=== PATIENT | female | born 1940 | race Caucasian/White ===

== ENCOUNTER → 2017-03-26 | Outpatient (CLI) | payer MEDICARE, OTHER ==
[~2017-03-26] MED LIST: ALPR0.2550 PO; ASPI-84 PO; ATEN-155 PO; ATOR80TA2 PO; ATR20T PO; CALC1CAP8 PO; CPR500T PO; FENO145T2 PO; FURO40TA4 PO; ISM60TCR PO; ISOS30TA3 PO; KCL20TCR PO; LOPE1LIQ PO; METO5TAB2 PO; MTF500T PO; MV-M1TAB20 PO; NF-ESOM40C PO; NITR12SP5 TL; PNT40TEC PO; POLY17PO23 PO; TRAM50TA2 PO; VERA120C2 PO; [UNRECOGNIZED DRUG - OTHER]
--- NOTE | 2017-03-27 19:59 | Diagnostic Imaging Report ---
Bilateral screening mammogram The current study was also evaluated with a Computer Aided Detection (CAD) system. Indication: Screening. No current complaints stated on the questionnaire. COMPARISON: 02/22/15 FINDINGS: The breasts are composed of scattered fibroglandular densities. There are scattered benign-appearing calcifications. Allowing for technique and positional differences, no suspicious change is seen. IMPRESSION: No significant change. ACR BI-RADS Category 2: Benign findings. Result letter will be mailed to the patient. Note: At least 10% of breast cancer is not imaged by mammography. Dictated by: Dictated on workstation # [id number]
== END ==
LOC: RAD 10:35
PROVIDERS: ATTEND Nurse Practitioner Family
DX: Z12.31 Encounter for screening mammogram for malignant neoplasm of breast (principal)
CPT/HCPCS: 77067

== ENCOUNTER → 2017-07-23 | Emergency (ER) | payer MEDICARE, OTHER ==
[~2017-07-23] VITALS: Ht 162.6 cm; Wt 77.1 kg
[~2017-07-23] MED LIST changes: +FLUORESCEIN (FLUOR-I-STRIPS) 1 MG STRP ONE; +FLUORESCEIN (FLUOR-I-STRIPS) 1 MG STRP OU ONE; +RX-TOBRA/DEXAMETH (TOBRADEX) OP. SUSP 2.5 ML BTL ONE; +TETRACAINE 0.5% OPHTH SOLN 4 ML BTL (SINGLE DOSE ONLY) ONE; +TETRACAINE 0.5% OPHTH SOLN 4 ML BTL (SINGLE DOSE ONLY) OU ONE; +TOBRA/DEXAMETH (TOBRADEX) OPHTH SUSP 2.5 ML BTL OU SCH; +cloNIDine 0.1 MG (CATAPRES) TAB PO ONE
--- OUTSIDE RECORDS SUMMARY | 2017-07-23 20:06 | XMS REPORT | Clinical Summary ---
Author Author [facility] Organization [facility] Address Unknown Phone Unavailable Care Team Providers Care Disaster Recovery Consultant Name Role Phone PCP Unavailable Source Comments Some departments are not documenting in the electronic medical record. If you do not see the information that you expected, contact Release of Information in the Health Information Management department at [phone] for further assistance in locating additional records.[facility] Allergies Active Allergy Reactions Severity Noted Date Comments Sulfa (Sulfonamide RASH 01/10/2012 Antibiotics) Current Medications Prescription Sig. Disp. Refills Start End Date Status Date atorvastatin (LIPITOR) 20 Take 20 mg by mouth Active mg tablet daily. fenofibrate micronized Take 134 mg by mouth Active (LOFIBRA) 134 mg capsule daily. atenolol (TENORMIN) 25 mg Take 25 mg by mouth Active tablet daily. esomeprazole DR(+) Take 40 mg by mouth Active (NEXIUM) 40 mg capsule daily. isosorbide mononitrate SR Take 60 mg by mouth every Active (IMDUR) 60 mg tablet morning. aspirin EC 81 mg tablet Take 81 mg by mouth Active daily. ALPRAZolam (XANAX) 0.25 Take 0.25 mg by mouth Active mg tablet every 6 hours as needed. nitroglycerin Take 1 [place] by mouth Active (NITROLINGUAL) 0.4 every 5 minutes as mg/dose translingual needed. spray furosemide (LASIX) 40 mg Take 40 mg by mouth as Active tablet Needed. potassium chloride SR Take 20 mEq by mouth as Active (K-DUR) 20 mEq tablet Needed. diphenoxylate/atropine Take 1 Tab by mouth four Active (LOMOTIL) 2.5/0.025 mg times daily as needed. tablet budesonide (ENTOCORT EC) 3 po q day 168 Cap 0 02/26/20 Active 3 mg capsule 12 Mesalamine (ASACOL HD) Take 3 Tabs by mouth 180 Tab 3 04/16/20 Active 800 mg TbEC twice daily. 12 Active Problems Problem Noted Date Microscopic colitis 02/20/2012 Overview: Diagnosed 01/05 Intestinal bacterial overgrowth, small bowel 02/20/2012 Overview: Diagnosed 01/05; treated with metronidazole x 2 weeks Social History Tobacco Use Types Packs/Day Years Used Date Former Smoker Quit: 02/19/2006 Alcohol Use Drinks/Week oz/Week Comments Yes occasional Sex Assigned at Date Recorded Not on file Last Filed Vital Signs Vital Sign Reading Time Taken Blood Pressure 128/58 02/20/2012 2:37 PM CDT Pulse 63 02/20/2012 2:37 PM CDT Temperature 36.6 C (97.9 F) 02/20/2012 2:37 PM CDT Respiratory Rate 20 02/20/2012 2:37 PM CDT Oxygen Saturation - - Inhaled Oxygen - - Concentration Weight 71.3 kg (157 lb 3.2 oz) 02/20/2012 2:37 PM CDT Height 162.6 cm (5' 4") 02/20/2012 2:37 PM CDT Body Mass Index 26.98 02/20/2012 2:37 PM CDT Plan of Treatment Health Maintenance Due Date Last Done Comments PHYSICAL (COMPREHENSIVE) 1947 EXAM PERTUSSIS VACCINE 1950 TETANUS VACCINE 1956 SHINGLES VACCINE 1999 OSTEOPOROSIS SCREENING 2004 PREVNAR/PNEUMOVAX (#1) 2004 INFLUENZA VACCINE 07/27/2017 Results Not on filefrom Last 3 Months
--- OUTSIDE RECORDS SUMMARY | 2017-07-23 20:06 | XMS REPORT | Continuity of Care Document ---
Author Author [facility] Organization [facility] Address Unknown Phone Unavailable Allergies Active Description Code Type Severity Reaction Onset Reported/Identified Relationship to Patient Clinical Status Yes SULFA SULFA Severe N/A 04/12/2010 Medications 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 02/05/2012 Ot V57.89 REHABILITATION PROC NEC 03/31/2012 Ot 536.8 STOMACH FUNCTION DIS NEC 03/31/2012 Ot 787.3 FLATUL/ERUCTAT/GAS PAIN 03/31/2012 Ot 787.91 DIARRHEA 04/12/2012 Ot 250.00 DIAB [place] WO COMPL, TYPE II OR UNSPEC TY 04/12/2012 Ot 789.09 ABDOMINAL PAIN, OTHER SPECIFIED SITE 04/12/2012 Ot 791.9 ABN URINE FINDINGS NEC 04/12/2012 Ot V58.69 OTH MED,LT,CURRENT USE 09/08/2014 SANJAY BARAJAS DO Ot 401.9 HYPERTENSION NOS 09/08/2014 SANJAY BARAJAS DO Ot 414.01 CORONARY ATHEROSCLEROSIS OF [place] CORON 09/08/2014 SANJAY BARAJAS DO Ot 706.2 SEBACEOUS CYST 09/09/2014 SANJAY BARAJAS DO Ot 706.2 09/09/2014 SANJAY BARAJAS DO Ot V72.83 09/09/2014 SANJAY BARAJAS DO Ot V74.8 03/25/2015 NEIL SILVERMAN DO Ot V76.12 03/26/2017 MIGUEL ALLRED Ot Z12.31 ENCNTR SCREEN MAMMOGRAM FOR MALIGNANT NE 03/26/2017 Ot V76.12 OTH SCREEN MAMMO-MALIGN NEOPLASM OF [place] 03/26/2017 Ot 536.8 STOMACH FUNCTION DIS NEC 03/26/2017 Ot 787.3 FLATUL/ERUCTAT/GAS PAIN 03/26/2017 Ot 787.91 DIARRHEA 03/26/2017 Ot V76.12 OTH SCREEN MAMMO-MALIGN NEOPLASM OF [place] 03/26/2017 NEIL SILVERMAN DO Ot V76.12 OTH SCREEN MAMMO-MALIGN NEOPLASM OF [place] 03/26/2017 SANJAY BARAJAS DO [place] Ot 706.2 SEBACEOUS CYST 03/26/2017 SANJAY BARAJAS DO Ot V72.83 EXAM PRE-OPERATIVE NEC 03/26/2017 BARAJAS SANJAY RADER [place] Ot V74.8 SCREEN-BACTERIAL DIS NEC 03/26/2017 NEIL SILVERMAN DO Ot V76.12 OTH SCREEN MAMMO-MALIGN NEOPLASM OF [place] 03/26/2017 MIGUEL ALLRED Ot Z12.31 ENCNTR SCREEN MAMMOGRAM FOR MALIGNANT NE 03/26/2017 Ot V76.12 OTH SCREEN MAMMO-MALIGN NEOPLASM OF [place] 03/26/2017 Ot 536.8 STOMACH FUNCTION DIS NEC 03/26/2017 Ot 787.3 FLATUL/ERUCTAT/GAS PAIN 03/26/2017 Ot 787.91 DIARRHEA 03/26/2017 Ot V76.12 OTH SCREEN MAMMO-MALIGN NEOPLASM OF [place] 03/26/2017 NEIL SILVERMAN DO Ot V76.12 OTH SCREEN MAMMO-MALIGN NEOPLASM OF [place] 03/26/2017 BARAJAS SANJAY RADER [place] Ot 706.2 SEBACEOUS CYST 03/26/2017 BARAJAS SANJAY RADER [place] Ot V72.83 EXAM PRE-OPERATIVE NEC 03/26/2017 BARAJAS SANJAY RADER [place] Ot V74.8 SCREEN-BACTERIAL DIS NEC 03/26/2017 NEIL SILVERMAN DO Ot V76.12 OTH SCREEN MAMMO-MALIGN NEOPLASM OF [place] 03/26/2017 MIGUEL ALLRED Ot Z12.31 ENCNTR SCREEN MAMMOGRAM FOR MALIGNANT NE 04/01/2017 MIGUEL ALLREDP Ot Z12.31 ENCNTR SCREEN MAMMOGRAM FOR MALIGNANT NE 04/15/2017 MIGUEL ALLRED INSURANCE SALESMAN Ot Z12.31 ENCNTR SCREEN MAMMOGRAM FOR MALIGNANT NE Procedures Results Encounters ACCT No. Visit Date/Time Discharge Status Pt. Type Provider Facility Loc./Unit Complaint [id number] 06/25/2017 13:26:00 2016 23:59:59 CLS Preadmit SERAFIN LU MD [facility] RAD ATAXIA,LOWER LEG WEAKNESS [id number] 03/26/2017 11:00:00 2016 23:59:59 CLS Preadmit MIGUEL ALLRED [facility] RAD MEMORY LOSS [id number] 03/26/2017 10:35:00 2016 23:59:59 CLS Outpatient MIGUEL ALLRED [facility] RAD Z12.31 BREAST CA SCREENING, MEMORY LOSS [id number] 02/22/2015 11:34:00 2014 23:59:59 CLS Outpatient NEIL SILVERMAN DO [facility] RAD SCREENING [id number] 09/08/2014 07:23:00 2013 11:05:00 DIS Outpatient SANJAY BARAJAS DO [facility] SDC CYST ON CHEST [id number] 09/06/2014 12:11:00 2013 23:59:59 CLS Outpatient SANJAY BARAJAS DO [facility] PREOP CYST ON CHEST [id number] 02/21/2014 09:37:00 2013 23:59:59 CLS Outpatient NEIL SILVERMAN DO [facility] RAD SCREENING [id number] 03/26/2017 10:33:00 Document Registration [id number] 12/02/2012 14:56:00 Document Registration [id number] 04/12/2012 11:25:00 Document Registration [id number] 04/01/2012 00:00:00 Document Registration [id number] 01/06/2012 10:57:00 Document Registration [id number] 12/11/2011 11:46:00 Document Registration [id number] 10/10/2011 08:15:00 Document Registration
--- NOTE | 2017-07-23 22:25 | ED EENT ---
History of Present Illness General Chief Complaint: Eye Problems Stated Complaint: HIGH BP;EYE PAIN Nursing Triage Note: PT C/O L EYE PAIN VERY SEVERE TONIGHT AND WENT TO [facility] BEING SENT OVER AFTER 1999. 2-3 HX L OCULAR PAIN INTERMITTANT SHARP AND STABBING. L SIDED PANCHAL PRESENT. SOME DIZZINESS. L EYE BURNING AND WATERY Source: patient Exam Limitations: no limitations History of Present Illness Time seen by provider: 22:15 Initial Comments Here with report of left eye pain. This is been going on for a couple hours but became very severe tonight. She tried to be seen at outside facility and they sent her here for further evaluation. She does associate this with the headache. States there is pain around the eye. Notes that eyes red. Denies any recent injury. Denies history of glaucoma. Timing/Duration: gradual Severity: moderate Location: eye (L) Prearrival Treatment: no prearrival treatment Associated Symptoms: No cough, No facial pain/swelling, No fever, No sore throat Allergies and Home Medications Allergies Uncoded Allergies: SULFA (Allergy, Severe, 04/12/10) Home Medications Aspirin 81 Mg Tablet.dr, 81 MG PO DAILY, (Reported) Calcium Carb/D3/Mag Aa Chelate 1 Each Capsule, 1 EACH PO DAILY, (Reported) Furosemide 40 Mg Tablet, 1 EACH PO PRN PRN for SWELLING, (Reported) Isosorbide Mononitrate 30 Mg Tab.sr.24h, 1 EACH PO DAILY, (Reported) Loperamide Hcl 1 Mg/7.5 Ml Liquid, 1 MG PO PRN PRN for DIARRHEA, (Reported) Mv-Mn/Iron/FA/Herbal Cmplx#190 1 Each Tablet, 1 EACH PO DAILY, (Reported) Nitroglycerin 4.9 Gm Gilbert, 4.9 GM TL PRN PRN for CHEST PAIN, (Reported) Pantoprazole Sod 40 Mg Tab, 40 MG PO DAILY, (Reported) Polyethylene Glycol 17 Gm Pack, 17 GM PO PRN PRN for CONSTIPATION, (Reported) Verapamil Hcl 120 Mg Cap24h.pel, 120 MG PO DAILY, (Reported) Review of Systems Constitutional: see HPI, No chills, No fever Eyes: See HPI, Foreign Body Sensation, Inflammation, Pain, Photophobia Ears: No Symptoms Reported Respiratory: no symptoms reported Cardiovascular: no symptoms reported Gastrointestinal: no symptoms reported, No nausea, No vomiting Past Zvwdfuj-Wpwpqo-Fzfcdx Hx Patient Social History Alcohol Use: Occasionally Uses Recreational Drug Use: No Smoking Status: Former Smoker Former Smoker, Quit: Oct 27, 1976 2nd Hand Smoke Exposure: No Recent Foreign Travel: No Contact w/Someone Who Travel: No Recent Infectious Disease Expo: No Recent Hopitalizations: No Immunizations Up To Date Date of Pneumonia Vaccine: Sep 08, 2012 Date of Influenza Vaccine: Jul 23, 2017 Seasonal Allergies Seasonal Allergies: No Surgeries History of Surgeries: Yes (BILATERAL KNEE SCOPE, BREAST BX, COLONOSCOPY) Surgeries: Gallbladder, Hysterectomy, Orthopedic, Tonsillectomy Respiratory History of Respiratory Disorde: No Cardiovascular History of Cardiac Disorders: Yes Cardiac Disorders: Coronary Artery Disease Neurological History of Neurological Disord: Yes (CURRENT MEMORY PROBLEMS (NEURO EVAL IN JUL 2017)) Gastrointestinal History of Gastrointestinal Di: Yes (ABDOMINAL PAIN) Gastrointestinal Disorders: Irritable Bowel Musculoskeletal History of Musculoskeletal Dis: No Endocrine History of Endocrine Disorders: Yes (DM TYPE II) Endocrine Disorders: Diabetes, Non-Insulin dep HEENT History of HEENT Disorders: Yes (SEVERE PAIN PRESENTLY) Psychosocial History of Psychiatric Problem: No Blood Transfusions History of Blood Disorders: No Reviewed Nursing Assessment Reviewed/Agree w Nursing PMH: Yes Family Medical History Significant Family History: No Pertinent Family Hx Physical Exam Vital Signs Vital Sign - Last 12Hours 07/23/17 20:27 Temp 97.2 Pulse 92 Resp 20 B/P (MAP) 184/97 Pulse Ox 97 O2 Delivery Room Air General Appearance: WD/WN, mild distress (I'm pain on the left) Eyes: right eye normal inspection, left eye conjunctival inflammation, left eye corneal abrasion (See image for location on the left eye.), left eye other ( Alon-Pen exam shows pressure of 17), bilateral eye PERRL, bilateral eye EOMI Neck: full range of motion, supple Cardiovascular: regular rate, rhythm, no murmur Respiratory: lungs clear, normal breath sounds Neurologic/Psychiatric: alert, oriented x 3 Skin: normal color, warm/dry Progress/Results/Core Measures Results/Orders My Orders Orders - TANVI DODD MD Tetracaine 0.5% Ophth Lynne Sdv (Tetracai (07/23/17 22:15) Fluorescein Strips (Rtcuw-X-Dcpzpt) (07/23/17 22:15) Fluorescein Strips (Ayaaq-C-Vrmghq) (07/23/17 22:08) Tetracaine 0.5% Ophth Lynne Sdv (Tetracai (07/23/17 22:08) Clonidine Tablet (Catapres Tablet) (07/23/17 22:30) Tobra/Dexameth Ophth Susp (Tobradex Opht (07/24/17 00:00) Rx-Tobramycin/Dexam. (Rx-Tobradex Op [place] (07/23/17 22:24) Medications Given in ED Vital Signs/I&O Blood Pressure Mean: 126 Progress Note : Progress Note Seen and evaluated. I exam done after tetracaine. Tetracaine completely resolved her pain. Fluorescein dye instilled in eye and one by 3 mm abrasion noted to the cornea in the mid pupil region. This does not appear to be a flap. Alon-Pen examination shows pressure be 17. I did discuss the case with Dr. Leone. He will see the patient in the office at 815 in the morning. The patient was very appreciative. Given information on calling back including personal cell phone number if there are any concerns before exam. Discharged home with return precautions. Patient verbalize understanding instructions and agreement with plan. Departure Impression Impression: Primary Impression: Corneal abrasion Qualified Codes: S05.02XA - Injury of conjunctiva and corneal abrasion without foreign body, left eye, initial encounter Disposition: 01 HOME, SELF-CARE Condition: Improved Departure-Patient Inst. Decision time for Depature: 22:25 Referrals: SERAFIN LU MD (PCP/Family) Primary Care Physician MARKOS LEONE OD Patient Instructions: Corneal Abrasion (DC) Add. Discharge Instructions: All discharge instructions reviewed with patient and/or family. Voiced understanding. Use eyedrops as directed. Call Dr. Leone in the morning for appointment time. Return for worse pain, vision problems or other concerns as needed. Images Eye 1 - Abrasion, Dye uptake (fluorescein) TANVI DODD MD Jul 23, 2017 22:25
[2017-07-23 23:00] VITALS: BP 143/84
== END | disposition home or self-care (01) ==
LOC: EDUNIT# 20:01 → ER 20:02
DX: S05.02XA Injury of conjunctiva and corneal abrasion without foreign body, left eye, initial encounter (principal); I25.10 Atherosclerotic heart disease of native coronary artery without angina pectoris; E11.9 Type 2 diabetes mellitus without complications; Z87.19 Personal history of other diseases of the digestive system; Z79.82 Long term (current) use of aspirin; Z87.891 Personal history of nicotine dependence; Z90.710 Acquired absence of both cervix and uterus; Z90.89 Acquired absence of other organs; X58.XXXA Exposure to other specified factors, initial encounter
CPT/HCPCS: 99284

== ENCOUNTER 2017-12-28 17:30 | Emergency (ER) | payer MEDICARE, OTHER ==
[~2017-12-28] VITALS: Ht 160 cm; Wt 68.9 kg
[~2017-12-28 17:30] MED LIST changes: +ACID RELIEF PO; +ACID1TAB PO; +ALPR0.254 PO; +ASPI-983 PO; +CHOL4PAC3 PO; +DILT180C54 PO; -FLUORESCEIN (FLUOR-I-STRIPS) 1 MG STRP ONE; -FLUORESCEIN (FLUOR-I-STRIPS) 1 MG STRP OU ONE; +INSU100I10 SC; +LACT1CAP62 PO; +LOPE-134 PO; +MEMA10TA22 PO; +METR500T21 PO; +NAPR1TAB25 PO; +NITR100C10 PO; +PREVAGEN PO; +ROPI0.25 PO; -RX-TOBRA/DEXAMETH (TOBRADEX) OP. SUSP 2.5 ML BTL ONE; +SUCR1TAB PO; -TETRACAINE 0.5% OPHTH SOLN 4 ML BTL (SINGLE DOSE ONLY) ONE; -TETRACAINE 0.5% OPHTH SOLN 4 ML BTL (SINGLE DOSE ONLY) OU ONE; -TOBRA/DEXAMETH (TOBRADEX) OPHTH SUSP 2.5 ML BTL OU SCH; -cloNIDine 0.1 MG (CATAPRES) TAB PO ONE
--- OUTSIDE RECORDS SUMMARY | 2017-12-28 17:35 | XMS REPORT | Clinical Summary ---
Author Author [facility] Organization [facility] Address Unknown Phone Unavailable Care Team Providers Care Supply Chain Tech Name Role Phone Jc Davis MD PCP Soumya Omer MD Unavailable Source Comments Some departments are not documenting in the electronic medical record. If you do not see the information that you expected, contact Release of Information in the Health Information Management department at [phone] for further assistance in locating additional records.[facility] Allergies Active Allergy Reactions Severity Noted Date [...] 6 hours as needed. nitroglycerin Take 1 [place] by mouth Active (NITROLINGUAL) 0.4 every 5 [...] SCREENING 2004 PREVNAR/PNEUMOVAX (#1) 2004 INFLUENZA VACCINE 05/27/2018 Results Not on filefrom Last 3 Months
--- OUTSIDE RECORDS SUMMARY | 2017-12-28 17:36 | XMS REPORT | Continuity of Care Document ---
Author Author [facility] Organization [facility] Address Unknown Phone Unavailable Allergies Active Description Code Type Severity Reaction Onset Reported/Identified Relationship to Patient Clinical Status Yes SULFA SULFA Severe N/A 04/12/2010 Medications There is no data. 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 02/05/2012 Ot V57.89 REHABILITATION PROC NEC 03/31/2012 Ot 536.8 STOMACH FUNCTION DIS NEC 03/31/2012 Ot 787.3 FLATUL/ ERUCTAT/GAS PAIN 03/31/2012 Ot 787.91 DIARRHEA 04/12/2012 Ot 250.00 DIAB [place] WO COMPL, TYPE II OR UNSPEC TY 04/12/2012 Ot 789.09 ABDOMINAL PAIN, OTHER SPECIFIED SITE 04/12/2012 Ot 791.9 ABN URINE FINDINGS NEC 04/12/2012 Ot V58.69 OTH MED,LT, CURRENT USE 09/08/2014 SANJAY BARAJAS DO Ot 401.9 HYPERTENSION NOS 09/08/2014 SANJAY BARAJAS DO Ot 414.01 CORONARY ATHEROSCLEROSIS OF [place] CORON 09/08/2014 SANJAY BARAJAS DO Ot 706.2 SEBACEOUS CYST 09/09/2014 SANJAY BARAJAS DO Ot 706.2 09/09/2014 SANJAY BAARJAS DO Ot V72.83 09/09/2014 SANJAY BARAJAS DO Ot V74.8 03/25/2015 NEIL SILVERMAN DO Ot V76.12 03/26/2017 MIGUEL ALLRED Ot Z12.31 ENCNTR SCREEN MAMMOGRAM FOR MALIGNANT NE 03/26/2017 Ot V76.12 OTH SCREEN MAMMO-MALIGN NEOPLASM OF [place] 03/26/2017 Ot 536.8 STOMACH FUNCTION DIS NEC 03/26/2017 Ot 787.3 FLATUL/ ERUCTAT/GAS PAIN 03/26/2017 Ot 787.91 DIARRHEA 03/26/2017 Ot V76.12 OTH SCREEN MAMMO-MALIGN NEOPLASM OF [place] 03/26/2017 NEIL SILVERMAN DO Ot V76.12 OTH SCREEN MAMMO-MALIGN NEOPLASM OF [place] 03/26/2017 BARAJAS SANJAY RADER Ot 706.2 SEBACEOUS CYST 03/26/2017 BARAJAS SANJAY RADER Ot V72.83 EXAM PRE-OPERATIVE NEC 03/26/2017 BARAJAS SANJAY RADER Ot V74.8 SCREEN-BACTERIAL DIS NEC 03/26/2017 NEIL SILVERMAN DO W Ot V76.12 OTH SCREEN MAMMO-MALIGN NEOPLASM OF [place] 03/26/2017 MIGUEL ALLRED Ot Z12.31 ENCNTR SCREEN MAMMOGRAM FOR MALIGNANT NE 03/26/2017 Ot V76.12 OTH SCREEN MAMMO-MALIGN NEOPLASM OF [place] 03/26/2017 Ot 536.8 STOMACH FUNCTION DIS NEC 03/26/2017 Ot 787.3 FLATUL/ ERUCTAT/GAS PAIN 03/26/2017 Ot 787.91 DIARRHEA 03/26/2017 Ot V76.12 OTH SCREEN MAMMO-MALIGN NEOPLASM OF [place] 03/26/2017 NEIL SILVERMAN DO W Ot V76.12 OTH SCREEN MAMMO-MALIGN NEOPLASM OF [place] 03/26/2017 BARAJAS SANJAY RADER Ot 706.2 SEBACEOUS CYST 03/26/2017 BARAJAS SANJAY RADER Ot V72.83 EXAM PRE-OPERATIVE NEC 03/26/2017 BARAJAS SANJAY RADER Ot V74.8 SCREEN-BACTERIAL DIS NEC 03/26/2017 NEIL SILVERMAN DO W Ot V76.12 OTH SCREEN MAMMO-MALIGN NEOPLASM OF [place] 03/26/2017 MIGUEL ALLRED MANAGER OF ORGANIZATIONAL DEVELOPMENT Ot Z12.31 ENCNTR SCREEN MAMMOGRAM FOR MALIGNANT NE 04/01/2017 MIGUEL ALLRED MANAGER OF ORGANIZATIONAL DEVELOPMENT Ot Z12.31 ENCNTR SCREEN MAMMOGRAM FOR MALIGNANT NE 04/15/2017 MIGUEL ALLRED MANAGER OF ORGANIZATIONAL DEVELOPMENT Ot Z12.31 ENCNTR SCREEN MAMMOGRAM FOR MALIGNANT NE 07/23/2017 TANVI DODD MD Ot E11.9 TYPE 2 DIABETES MELLITUS WITHOUT COMPLIC 07/23/2017 TANVI DODD MD Ot H57.12 OCULAR PAIN, LEFT EYE 07/23/2017 TANVI DODD MD Ot I25.10 ATHSCL HEART DISEASE OF [place] CORONARY 07/23/2017 TANVI DODD MD Ot 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 07/23/2017 TANVI DODD MD Ot X58.XXXA EXPOSURE TO OTHER SPECIFIED FACTORS, INI 07/23/2017 TANVI DODD MD Ot 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 07/23/2017 TANVI DODD MD Ot Z87.19 PERSONAL HISTORY OF OTHER DISEASES OF TH 07/23/2017 TANVI DODD MD Ot Z87.891 PERSONAL HISTORY OF NICOTINE DEPENDENCE 07/23/2017 TANVI DODD MD Ot Z90.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 ABSENCE OF BOTH CERVIX AND UTER 07/23/2017 TANVI DODD MD Ot Z90.89 ACQUIRED ABSENCE OF OTHER ORGANS 07/25/2017 TANVI DODD MD Ot E11.9 TYPE 2 DIABETES MELLITUS WITHOUT COMPLIC 07/25/2017 TANVI DODD MD Ot H57.12 OCULAR PAIN, LEFT EYE 07/25/2017 TANVI DODD MD Ot I25.10 ATHSCL HEART DISEASE OF [place] CORONARY 07/25/2017 TANVI DODD MD Ot 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 07/25/2017 TANVI DODD MD Ot X58.XXXA EXPOSURE TO OTHER SPECIFIED FACTORS, INI 07/25/2017 TANVI DODD MD Ot 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 07/25/2017 TANVI DODD MD Ot Z87.19 PERSONAL HISTORY OF OTHER DISEASES OF TH 07/25/2017 TANVI DODD MD Ot Z87.891 PERSONAL HISTORY OF NICOTINE DEPENDENCE 07/25/2017 TANVI DODD MD Ot Z90.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 ABSENCE OF BOTH CERVIX AND UTER 07/25/2017 TANVI DODD MD Ot Z90.89 ACQUIRED ABSENCE OF OTHER ORGANS 07/29/2017 TANVI DODD MD Ot E11.9 TYPE 2 DIABETES MELLITUS WITHOUT COMPLIC 07/29/2017 TANVI DODD MD Ot H57.12 OCULAR PAIN, LEFT EYE 07/29/2017 TANVI DODD MD, Ot I25.10 ATHSCL HEART DISEASE OF [place] CORONARY 07/29/2017 TANVI DODD MD, Ot 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 07/29/2017 TANVI DODD MD, Ot X58.XXXA EXPOSURE TO OTHER SPECIFIED FACTORS, INI 07/29/2017 TANVI DODD MD, Ot 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 07/29/2017 TANVI DODD MD, Ot Z87.19 PERSONAL HISTORY OF OTHER DISEASES OF [place] 07/29/2017 TANVI DODD MD, Ot Z87.891 PERSONAL HISTORY OF NICOTINE DEPENDENCE 07/29/2017 TANVI DODD MD, Ot Z90.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 ABSENCE OF BOTH CERVIX AND UTER 07/29/2017 TANVI DODD MD, Ot Z90.89 ACQUIRED ABSENCE OF OTHER ORGANS 12/17/2017 SERAFIN LU MD Ot E11.9 TYPE 2 DIABETES MELLITUS WITHOUT COMPLIC 12/17/2017 SERAFIN LU MD Ot E83.52 HYPERCALCEMIA 12/17/2017 SERAFIN LU MD Ot E87.6 HYPOKALEMIA 12/17/2017 SERAFIN LU MD Ot F03.90 UNSPECIFIED DEMENTIA WITHOUT BEHAVIORAL 12/17/2017 SERAFIN LU MD Ot I10 ESSENTIAL (PRIMARY) HYPERTENSION 12/17/2017 SERAFIN LU MD Ot I25.10 ATHSCL HEART DISEASE OF [place] CORONARY 12/17/2017 SERAFIN LU MD Ot 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 12/17/2017 SERAFIN LU MD Ot N17.9 ACUTE KIDNEY FAILURE, UNSPECIFIED 12/17/2017 SERAFIN LU MD Ot N39.0 URINARY TRACT INFECTION, SITE NOT SPECIF 12/17/2017 SERAFIN LU MD Ot R19.7 DIARRHEA, UNSPECIFIED 12/18/2017 SERAFIN LU MD Ot A41.9 SEPSIS, UNSPECIFIED ORGANISM 12/18/2017 SERAFIN LU MD Ot B95.2 ENTEROCOCCUS THE CAUSE OF DISEASES CL 12/18/2017 SERAFIN LU MD Ot B96.20 UNSP ESCHERICHIA COLI THE CAUSE OF DI 12/18/2017 SERAFIN LU MD Ot E11.9 TYPE 2 DIABETES MELLITUS WITHOUT COMPLIC 12/18/2017 SERAFIN LU MD Ot E83.52 HYPERCALCEMIA 12/18/2017 SERAFIN LU MD Ot E86.0 DEHYDRATION 12/18/2017 SERAFIN LU MD Ot E87.6 HYPOKALEMIA 12/18/2017 SERAFIN LU MD Ot F03.90 UNSPECIFIED DEMENTIA WITHOUT BEHAVIORAL 12/18/2017 SERAFIN LU MD Ot F41.9 ANXIETY DISORDER, UNSPECIFIED 12/18/2017 SERAFIN LU MD Ot I10 ESSENTIAL (PRIMARY) HYPERTENSION 12/18/2017 SERAFIN LU MD Ot I25.10 ATHSCL HEART DISEASE OF [place] CORONARY 12/18/2017 SERAFIN LU MD Ot K44.9 DIAPHRAGMATIC HERNIA WITHOUT OBSTRUCTION 12/18/2017 SERAFIN LU MD Ot 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 Results Test Result Range Complete blood count (CBC) with automated white blood cell (WBC) differential - 12/14/17 17:30 Blood leukocytes automated count (number/volume) 13.5 10*3/uL 4.3-11.0 Blood erythrocytes automated count (number/volume) 4.96 10*6/uL 4.35-5.85 Venous blood hemoglobin measurement (mass/volume) 15.8 g/dL 11.5-16.0 Blood hematocrit (volume fraction) 43 % 35-52 Automated erythrocyte mean corpuscular volume 86 [foz_us] 80-99 Automated erythrocyte mean corpuscular hemoglobin (mass per erythrocyte) 32 pg 25-34 Automated erythrocyte mean corpuscular hemoglobin concentration measurement ( mass/volume) 37 g/dL 32-36 Automated erythrocyte distribution width ratio 13.1 % 10.0-14.5 Automated blood platelet count (count/volume) 475 10*3/uL 130-400 Automated blood platelet mean volume measurement 9.0 [foz_us] 7.4-10.4 Automated blood neutrophils/100 leukocytes 83 % 42-75 Automated blood lymphocytes/100 leukocytes 10 % 12-44 Blood monocytes/100 leukocytes 7 % 0-12 Automated blood eosinophils/100 leukocytes 0 % 0-10 Automated blood basophils/100 leukocytes 0 % 0-10 Blood neutrophils automated count (number/volume) 11.2 10*3 1.8-7.8 Blood lymphocytes automated count (number/volume) 1.4 10*3 1.0-4.0 Blood monocytes automated count (number/volume) 0.9 10*3 0.0-1.0 Automated eosinophil count 0.0 10*3/uL 0.0-0.3 Automated blood basophil count (count/volume) 0.0 10*3/uL 0.0-0.1 Comprehensive metabolic panel - 12/14/17 17:30 Serum or plasma sodium measurement (moles/volume) 137 mmol/L 135-145 Serum or plasma potassium measurement (moles/volume) 2.6 mmol/L 3.6-5.0 Serum or plasma chloride measurement (moles/volume) 104 mmol/L 98-107 Carbon dioxide 14 mmol/L 21-32 Serum or plasma anion gap determination (moles/volume) 19 mmol/L 5-14 Serum or plasma urea nitrogen measurement (mass/volume) 24 mg/dL 7-18 Serum or plasma creatinine measurement (mass/volume) 1.86 mg/dL 0.60-1.30 Serum or plasma urea nitrogen/creatinine mass ratio 13 NRG Serum or plasma creatinine measurement with calculation of estimated glomerular filtration rate 26 NRG Serum or plasma glucose measurement (mass/volume) 188 mg/dL 70-105 Serum or plasma calcium measurement (mass/volume) 10.6 mg/dL 8.5-10.1 Serum or plasma total bilirubin measurement (mass/volume) 0.7 mg/dL 0.1-1.0 Serum or plasma alkaline phosphatase measurement (enzymatic activity/volume) 88 U/L 40-136 Serum or plasma aspartate aminotransferase measurement (enzymatic activity/ volume) 35 U/L 5-34 Serum or plasma alanine aminotransferase measurement (enzymatic activity/volume ) 41 U/L 0-55 Serum or plasma protein measurement (mass/volume) 9.0 g/dL 6.4-8.2 Serum or plasma albumin measurement (mass/volume) 4.8 g/dL 3.2-4.5 Magnesium - 12/14/17 17:30 Magnesium 1.7 mg/dL 1.8-2.4 Serum or plasma C reactive protein measurement (mass/volume) - 12/14/17 17:30 Serum or plasma C reactive protein measurement (mass/volume) 2.46 mg /dL 0.00-0.50 Complete urinalysis with reflex to culture - 12/14/17 17:45 Urine color determination YELLOW NRG Urine clarity determination SLIGHTLY CLOUDY NRG Urine pH measurement by test strip 6 5-9 Specific gravity of urine by test strip 1.025 1.016- 1.022 Urine protein assay by test strip, semi-quantitative 3+ NEGATIVE Urine glucose detection by automated test strip NEGATIVE NEGATIVE Erythrocytes detection in urine sediment by light microscopy 1+ NEGATIVE Urine ketones detection by automated test strip NEGATIVE NEGATIVE Urine nitrite detection by test strip NEGATIVE NEGATIVE Urine total bilirubin detection by test strip NEGATIVE NEGATIVE Urine urobilinogen measurement by automated test strip (mass/volume) NORMAL NORMAL Urine leukocyte esterase detection by dipstick 3+ NEGATIVE Automated urine sediment erythrocyte count by microscopy (number/high power field) [HPF] NRG Automated urine sediment leukocyte count by microscopy (number/high power field ) [HPF] NRG Bacteria detection in urine sediment by light microscopy FEW NRG Squamous epithelial cells detection in urine sediment by light microscopy 25-50 NRG Crystals detection in urine sediment by light microscopy NONE NRG Casts detection in urine sediment by light microscopy PRESENT NRG Mucus detection in urine sediment by light microscopy NEGATIVE NRG Complete urinalysis with reflex to culture YES NRG Hyaline casts detection in urine sediment by light microscopy >50 NRG C DIFFICILE AG + TOXIN A/B. - 12/14/17 17:45 RESULTS NEGATIVE FOR ANTIGEN AND TOXIN A/B NRG Stool bacteria identification by culture - 12/14/17 17:45 Stool bacteria identification by culture N2 NRG Bacterial urine culture - 12/14/17 17:45 Bacterial urine culture [id number] NRG COLONY COUNT <10,000 NRG FTX;REPORTABLE SENSITIVITY REPORTED 12/17/17 7:15 NRG FREE TEXT ENTRY 2 PLUS, NRG FREE TEXT ENTRY 3 MIXED GRAM POSITIVES <10,000/ML NRG Bacterial susceptibility panel - 12/14/17 17:45 Gentamicin susceptibility test by minimum inhibitory concentration S NRG Vancomycin susceptibility test by minimum inhibitory concentration 2 NRG Levofloxacin susceptibility test by minimum inhibitory concentration 0.5 NRG Tetracycline susceptibility test by minimum inhibitory concentration >= NRG Ampicillin susceptibility test by minimum inhibitory concentration < = NRG Nitrofurantoin susceptibility test by minimum inhibitory concentration <= NRG Linezolid susceptibility test by minimum inhibitory concentration 2 NR Bacterial susceptibility panel - 12/14/17 17:45 Gentamicin susceptibility test by minimum inhibitory concentration < = NRG Trimethoprim/sulfamethoxazole susceptibility test by minimum inhibitoryconcentration S NRG Ampicillin susceptibility test by minimum inhibitory concentration 8 NRG Tobramycin susceptibility test by minimum inhibitory concentration < = NRG Cefazolin susceptibility test by minimum inhibitory concentration < = NRG Ceftriaxone susceptibility test by minimum inhibitory concentration <= NRG Ampicillin/sulbactam susceptibility test by minimum inhibitory concentration S NRG Piperacillin/tazobactam susceptibility test by minimum inhibitory concentration S NRG Ciprofloxacin susceptibility test by minimum inhibitory concentration >= NRG Meropenem susceptibility test by minimum inhibitory concentration < = NRG Nitrofurantoin susceptibility test by minimum inhibitory concentration <= NRG Aztreonam susceptibility test by minimum inhibitory concentration < = NRG Extended spectrum beta lactamase (ESBL) producing bacteria susceptibility test by minimum inhibitory concentration - [facility] Blood lactic acid measurement (moles/volume) - 12/14/17 18:28 Blood lactic acid measurement (moles/volume) 2.37 mmol/L 0.50-2.00 Bacterial blood culture - 12/14/17 18:28 Bacterial blood culture NG NRG Bacterial blood culture - 12/14/17 18:55 Bacterial blood culture NG NRG Serum or plasma lactate measurement (moles/volume) - 12/14/17 20:40 Serum or plasma lactate measurement (moles/volume) 1.47 mmol/L 0.50-2.00 Capillary blood glucose measurement by glucometer (mass/volume) - 12/14/17 20: 43 Capillary blood glucose measurement by glucometer (mass/volume) 130 mg/dL 70-110 Capillary blood glucose measurement by glucometer (mass/volume) - 12/15/17 05: 37 Capillary blood glucose measurement by glucometer (mass/volume) 105 mg/dL 70-110 Complete blood count (CBC) with automated white blood cell (WBC) differential - 12/15/17 06:00 Blood leukocytes automated count (number/volume) 10.7 10*3/uL 4.3-11.0 Blood erythrocytes automated count (number/volume) 4.02 10*6/uL 4.35-5.85 Venous blood hemoglobin measurement (mass/volume) 12.7 g/dL 11.5-16.0 Blood hematocrit (volume fraction) 35 % 35-52 Automated erythrocyte mean corpuscular volume 86 [foz_us] 80-99 Automated erythrocyte mean corpuscular hemoglobin (mass per erythrocyte) 32 pg 25-34 Automated erythrocyte mean corpuscular hemoglobin concentration measurement ( mass/volume) 37 g/dL 32-36 Automated erythrocyte distribution width ratio 12.7 % 10.0-14.5 Automated blood platelet count (count/volume) 376 10*3/uL 130-400 Automated blood platelet mean volume measurement 9.1 [foz_us] 7.4-10.4 Automated blood neutrophils/100 leukocytes 61 % 42-75 Automated blood lymphocytes/100 leukocytes 26 % 12-44 Blood monocytes/100 leukocytes 11 % 0-12 Automated blood eosinophils/100 leukocytes 1 % 0-10 Automated blood basophils/100 leukocytes 1 % 0-10 Blood neutrophils automated count (number/volume) 6.6 10*3 1.8-7.8 Blood lymphocytes automated count (number/volume) 2.8 10*3 1.0-4.0 Blood monocytes automated count (number/volume) 1.2 10*3 0.0-1.0 Automated eosinophil count 0.1 10*3/uL 0.0-0.3 Automated blood basophil count (count/volume) 0.1 10*3/uL 0.0-0.1 Comprehensive metabolic panel - 12/15/17 06:00 Serum or plasma sodium measurement (moles/volume) 137 mmol/L 135-145 Serum or plasma potassium measurement (moles/volume) 3.1 mmol/L 3.6-5.0 Serum or plasma chloride measurement (moles/volume) 110 mmol/L 98-107 Carbon dioxide 14 mmol/L 21-32 Serum or plasma anion gap determination (moles/volume) 13 mmol/L 5-14 Serum or plasma urea nitrogen measurement (mass/volume) 23 mg/dL 7-18 Serum or plasma creatinine measurement (mass/volume) 1.32 mg/dL 0.60-1.30 Serum or plasma urea nitrogen/creatinine mass ratio 17 NRG Serum or plasma creatinine measurement with calculation of estimated glomerular filtration rate 39 NRG Serum or plasma glucose measurement (mass/volume) 100 mg/dL 70-105 Serum or plasma calcium measurement (mass/volume) 9.1 mg/dL 8.5-10.1 Serum or plasma total bilirubin measurement (mass/volume) 0.5 mg/dL 0.1-1.0 Serum or plasma alkaline phosphatase measurement (enzymatic activity/volume) 66 U/L 40-136 Serum or plasma aspartate aminotransferase measurement (enzymatic activity/ volume) 27 U/L 5-34 Serum or plasma alanine aminotransferase measurement (enzymatic activity/volume ) 28 U/L 0-55 Serum or plasma protein measurement (mass/volume) 6.8 g/dL 6.4-8.2 Serum or plasma albumin measurement (mass/volume) 3.7 g/dL 3.2-4.5 Capillary blood glucose measurement by glucometer (mass/volume) - 12/15/17 10: 06 Capillary blood glucose measurement by glucometer (mass/volume) 109 mg/dL 70-110 Capillary blood glucose measurement by glucometer (mass/volume) - 12/15/17 17: 21 Capillary blood glucose measurement by glucometer (mass/volume) 122 mg/dL 70-110 Capillary blood glucose measurement by glucometer (mass/volume) - 12/15/17 20: 11 Capillary blood glucose measurement by glucometer (mass/volume) 107 mg/dL 70-110 Capillary blood glucose measurement by glucometer (mass/volume) - 12/16/17 05: 37 Capillary blood glucose measurement by glucometer (mass/volume) 85 mg/dL 70-110 Automated blood complete blood count (hemogram) panel - 12/16/17 05:37 Blood leukocytes automated count (number/volume) 8.2 10*3/uL 4.3-11.0 Blood erythrocytes automated count (number/volume) 3.50 10*6/uL 4.35-5.85 Venous blood hemoglobin measurement (mass/volume) 11.3 g/dL 11.5-16.0 Blood hematocrit (volume fraction) 31 % 35-52 Automated erythrocyte mean corpuscular volume 89 [foz_us] 80-99 Automated erythrocyte mean corpuscular hemoglobin (mass per erythrocyte) 32 pg 25-34 Automated erythrocyte mean corpuscular hemoglobin concentration measurement ( mass/volume) 36 g/dL 32-36 Automated erythrocyte distribution width ratio 13.3 % 10.0-14.5 Automated blood platelet count (count/volume) 334 10*3/uL 130-400 Automated blood platelet mean volume measurement 9.0 [foz_us] 7.4-10.4 Comprehensive metabolic panel - 12/16/17 05:37 Serum or plasma sodium measurement (moles/volume) 142 mmol/L 135-145 Serum or plasma potassium measurement (moles/volume) 3.4 mmol/L 3.6-5.0 Serum or plasma chloride measurement (moles/volume) 121 mmol/L 98-107 Carbon dioxide 14 mmol/L 21-32 Serum or plasma anion gap determination (moles/volume) 7 mmol/L 5-14 Serum or plasma urea nitrogen measurement (mass/volume) 15 mg/dL 7-18 Serum or plasma creatinine measurement (mass/volume) 0.85 mg/dL 0.60-1.30 Serum or plasma urea nitrogen/creatinine mass ratio 18 NRG Serum or plasma creatinine measurement with calculation of estimated glomerular filtration rate > NRG Serum or plasma glucose measurement (mass/volume) 82 mg/dL 70-105 Serum or plasma calcium measurement (mass/volume) 8.4 mg/dL 8.5-10.1 Serum or plasma total bilirubin measurement (mass/volume) 0.3 mg/dL 0.1-1.0 Serum or plasma alkaline phosphatase measurement (enzymatic activity/volume) 55 U/L 40-136 Serum or plasma aspartate aminotransferase measurement (enzymatic activity/ volume) 27 U/L 5-34 Serum or plasma alanine aminotransferase measurement (enzymatic activity/volume ) 24 U/L 0-55 Serum or plasma protein measurement (mass/volume) 5.8 g/dL 6.4-8.2 Serum or plasma albumin measurement (mass/volume) 3.3 g/dL 3.2-4.5 Capillary blood glucose measurement by glucometer (mass/volume) - 12/16/17 09: 41 Capillary blood glucose measurement by glucometer (mass/volume) 98 mg/dL 70-110 Capillary blood glucose measurement by glucometer (mass/volume) - 12/16/17 17: 10 Capillary blood glucose measurement by glucometer (mass/volume) 94 mg/dL 70-110 Capillary blood glucose measurement by glucometer (mass/volume) - 12/16/17 20: 46 Capillary blood glucose measurement by glucometer (mass/volume) 99 mg/dL 70-110 Capillary blood glucose measurement by glucometer (mass/volume) - 12/17/17 05: 15 Capillary blood glucose measurement by glucometer (mass/volume) 123 mg/dL 70-110 Automated blood complete blood count (hemogram) panel - 12/17/17 05:22 Blood leukocytes automated count (number/volume) 8.8 10*3/uL 4.3-11.0 Blood erythrocytes automated count (number/volume) 3.85 10*6/uL 4.35-5.85 Venous blood hemoglobin measurement (mass/volume) 12.3 g/dL 11.5-16.0 Blood hematocrit (volume fraction) 34 % 35-52 Automated erythrocyte mean corpuscular volume 89 [foz_us] 80-99 Automated erythrocyte mean corpuscular hemoglobin (mass per erythrocyte) 32 pg 25-34 Automated erythrocyte mean corpuscular hemoglobin concentration measurement ( mass/volume) 36 g/dL 32-36 Automated erythrocyte distribution width ratio 13.1 % 10.0-14.5 Automated blood platelet count (count/volume) 369 10*3/uL 130-400 Automated blood platelet mean volume measurement 8.6 [foz_us] 7.4-10.4 Comprehensive metabolic panel - 12/17/17 05:22 Serum or plasma sodium measurement (moles/volume) 141 mmol/L 135-145 Serum or plasma potassium measurement (moles/volume) 3.6 mmol/L 3.6-5.0 Serum or plasma chloride measurement (moles/volume) 117 mmol/L 98-107 Carbon dioxide 16 mmol/L 21-32 Serum or plasma anion gap determination (moles/volume) 8 mmol/L 5-14 Serum or plasma urea nitrogen measurement (mass/volume) 7 mg/dL 7-18 Serum or plasma creatinine measurement (mass/volume) 0.80 mg/dL 0.60-1.30 Serum or plasma urea nitrogen/creatinine mass ratio 9 NRG Serum or plasma creatinine measurement with calculation of estimated glomerular filtration rate > NRG Serum or plasma glucose measurement (mass/volume) 112 mg/dL 70-105 Serum or plasma calcium measurement (mass/volume) 8.9 mg/dL 8.5-10.1 Serum or plasma total bilirubin measurement (mass/volume) 0.3 mg/dL 0.1-1.0 Serum or plasma alkaline phosphatase measurement (enzymatic activity/volume) 61 U/L 40-136 Serum or plasma aspartate aminotransferase measurement (enzymatic activity/ volume) 34 U/L 5-34 Serum or plasma alanine aminotransferase measurement (enzymatic activity/volume ) 29 U/L 0-55 Serum or plasma protein measurement (mass/volume) 6.6 g/dL 6.4-8.2 Serum or plasma albumin measurement (mass/volume) 3.6 g/dL 3.2-4.5 Capillary blood glucose measurement by glucometer (mass/volume) - 12/17/17 09: 38 Capillary blood glucose measurement by glucometer (mass/volume) 118 mg/dL 70-110 Capillary blood glucose measurement by glucometer (mass/volume) - 12/17/17 14: 09 Capillary blood glucose measurement by glucometer (mass/volume) 106 mg/dL 70-110 Capillary blood glucose measurement by glucometer (mass/volume) - 12/17/17 16: 17 Capillary blood glucose measurement by glucometer (mass/volume) 102 mg/dL 70-110 Capillary blood glucose measurement by glucometer (mass/volume) - 12/17/17 20: 25 Capillary blood glucose measurement by glucometer (mass/volume) 104 mg/dL 70-110 Capillary blood glucose measurement by glucometer (mass/volume) - 12/18/17 05: 19 Capillary blood glucose measurement by glucometer (mass/volume) 118 mg/dL 70-110 Capillary blood glucose measurement by glucometer (mass/volume) - 12/18/17 10: 50 Capillary blood glucose measurement by glucometer (mass/volume) 122 mg/dL 70-110 Encounters ACCT No. Visit Date/Time Discharge Status Pt. Type Provider Facility Loc./Unit Complaint [id number] 12/14/2017 19:02:00 12/18/2017 13:48:00 DIS Inpatient SERAFIN LU MD [facility] 4TH UTI, DIARRHEA, ACUTE RENAL FAILURE, HYPONATREMIA [id number] 07/23/2017 20:02:00 07/23/2017 23:00:00 DIS Emergency YOUSIF GARCIA, TANVI Coto [facility] ER HIGH BP;EYE PAIN [id number] 06/25/2017 13:26:00 06/25/2017 23:59:59 CLS Preadmit SERAFIN LU MD [facility] RAD ATAXIA,LOWER LEG WEAKNESS [id number] 03/26/2017 11:00:00 03/26/2017 23:59:59 CLS Preadmit MIGUEL ALLRED [facility] RAD MEMORY LOSS [id number] 03/26/2017 10:35:00 03/26/2017 23:59:59 CLS Outpatient MIGUEL ALLRED [facility] RAD Z12.31 BREAST CA SCREENING, MEMORY LOSS [id number] 02/22/2015 11:34:00 02/22/2015 23:59:59 CLS Outpatient NEIL SIVLERMAN DO [facility] RAD SCREENING [id number] 09/08/2014 07:23:00 09/08/2014 11:05:00 DIS Outpatient SANJAY BARAJAS DO [facility] SDC CYST ON CHEST [id number] 09/06/2014 12:11:00 09/06/2014 23:59:59 CLS Outpatient SANJAY BARAJAS DO [facility] PREOP CYST ON CHEST [id number] 02/21/2014 09:37:00 02/21/2014 23:59:59 CLS Outpatient NEIL SILVERMAN DO [facility] RAD SCREENING [id number] 12/28/2017 17:31:00 ACT Emergency PILI GARCIA, TAJ Viera [facility] ER R WRIST SWELLING [id number] 03/26/2017 10:33:00 Document Registration [id number] 12/02/2012 14:56:00 Document Registration [id number] 04/12/2012 11:25:00 Document Registration [id number] 04/01/2012 00:00:00 Document Registration [id number] 01/06/2012 10:57:00 Document Registration [id number] 12/11/2011 11:46:00 Document Registration [id number] 10/10/2011 08:15:00 Document Registration
--- NOTE | 2017-12-28 18:11 | ED Upper Extremity ---
General Chief Complaint: Upper Extremity Stated Complaint: R WRIST SWELLING Nursing Triage Note: PT REPORTS WAKING UP THIS AM WITH R WRIST PAIN AND SWELLING. SHE DENIES INJURY. Nursing Sepsis Screen: No Definite Risk History of Present Illness Date Seen by Provider: Dec 28, 2017 Time Seen by Provider: 17:45 Initial Comments 77-year-old female reports for right wrist pain. She denies an injury to the right wrist. She woke today and had immediate onset of pain at the radius and base of her thumb. She is on tramadol and it is controlling her pain. Onset: this morning Pain/Injury Location: right wrist, right thumb Method of Injury: unknown Allergies and Home Medications Allergies Uncoded Allergies: SULFA (Allergy, Severe, 04/12/10) Home Medications Alprazolam 0.25 Mg Tablet, 0.125 MG PO BID PRN for ANXIETY Prescribed by: SERAFIN LU on 12/18/17914 Aspirin 81 Mg Tablet.dr, 81 MG PO DAILY, (Reported) Cholestyramine/Aspartame 4 Gm Powd.pack, 4 GM PO BID Prescribed by: SERAFIN LU on 12/18/17914 Diltiazem HCl 180 Mg Cap.er.24h, 180 MG PO DAILY, (Reported) Furosemide 40 Mg Tablet, 40 MG PO DAILY PRN for SWELLING, (Reported) Hydrocodone Bit/Acetaminophen 1 Tab Tab, 1 EACH PO Q6H PRN for PAIN Prescribed by: CJ FIGUEROA on 12/28/171917 Insulin Glargine,Hum.rec.anlog 100 Unit/1 Ml Insuln.pen, 10 UNITS SC HS, ( Reported) L. Acidophilus/Bulgaricus 1 Each Tablet, 1 TAB.CHEW PO AC Prescribed by: SERAFIN LU on 12/18/17914 Lactobacillus Acidophilus 1 Each Capsule, 1 CAP PO HS, (Reported) Loperamide HCl 2 Mg Tablet, 2 MG PO BID PRN for DIARRHEA Prescribed by: SERAFIN LU on 12/18/17917 Memantine HCl 10 Mg Tablet, 10 MG PO BID, (Reported) Metronidazole 500 Mg Tablet, 500 MG PO TID Prescribed by: SERAFIN LU on 12/18/17914 Naproxen Na-Diphenhydramin HCl 1 Each Tablet, 1 TAB PO HS PRN for SLEEP, ( Reported) Nitrofurantoin Monohyd/M-Cryst 100 Mg Capsule, 100 MG PO BID Prescribed by: SERAFIN LU on 12/18/17914 Ropinirole HCl 0.25 Mg Tablet, 0.25 MG PO BID, (Reported) Sucralfate 1 Gm Tablet, 1 GM PO ACHS Prescribed by: SERAFIN LU on 12/18/17914 Tramadol HCl 50 Mg Tablet, 50 MG PO TID PRN for PAIN-MODERATE, (Reported) [Acid Relief 360] , 1 CAP PO BID, (Reported) [Prevagen] , 1 TAB.CHEW PO HS, (Reported) Patient Home Medication List Home Medication List Reviewed: Yes Constitutional: no symptoms reported, see HPI Musculoskeletal: see HPI, joint pain (right wrist) All Other Systems Reviewed Negative Unless Noted: Yes Past Ikpljhj-Qxiteo-Icvmhx Hx Patient Social History Alcohol Use: Denies Use Recreational Drug Use: No Smoking Status: Never a Smoker Former Smoker, Quit: Oct 27, 1976 2nd Hand Smoke Exposure: No Recent Foreign Travel: No Contact w/Someone Who Travel: No Recent Infectious Disease Expo: No Recent Hopitalizations: No Immunizations Up To Date Date of Pneumonia Vaccine: Sep 08, 2012 Date of Influenza Vaccine: Jul 23, 2017 Seasonal Allergies Seasonal Allergies: No Surgeries History of Surgeries: Yes (BILATERAL KNEE SCOPE, BREAST BX, COLONOSCOPY) Surgeries: Gallbladder, Hysterectomy, Orthopedic, Tonsillectomy Respiratory History of Respiratory Disorde: No Cardiovascular History of Cardiac Disorders: Yes Cardiac Disorders: Coronary Artery Disease Neurological History of Neurological Disord: Yes (CURRENT MEMORY PROBLEMS (NEURO EVAL IN JUL 2017)) Neurological Disorders: Dementia Genitourinary History of Genitourinary Disor: No Gastrointestinal History of Gastrointestinal Di: Yes Gastrointestinal Disorders: Irritable Bowel Musculoskeletal History of Musculoskeletal Dis: No Endocrine History of Endocrine Disorders: Yes Endocrine Disorders: Diabetes, Non-Insulin dep HEENT History of HEENT Disorders: Yes Cancer History of Cancer: No Psychosocial History of Psychiatric Problem: No Integumentary History of Skin or Integumenta: No Blood Transfusions History of Blood Disorders: No Reviewed Nursing Assessment Reviewed/Agree w Nursing PMH: Yes Family Medical History Significant Family History: Hypertension Family Medial History: Patient reports no known family medical history. Physical Exam Vital Signs Vital Signs - First Documented 12/28/17 17:45 Temp 98.9 Pulse 104 Resp 16 B/P (MAP) 143/87 (105) Pulse Ox 97 O2 Delivery Room Air Capillary Refill : Less Than 3 Seconds General Appearance: WD/WN, no apparent distress Wrist: Yes bone tenderness, Yes limited ROM, Yes soft tissue tenderness ( secondary to pain pain over the distal radius) Hand: Right, bone tenderness (base of right thumb), deformity (arthritic changes at the thumb), limited ROM (secondary to pain), soft tissue tenderness Neurologic/Psychiatric: no motor/sensory deficits, alert, normal mood/affect Additional Procedures : Progress First carpometacarpal intra-articular injection: Using sterile technique the skin was prepped with Betadine, injected 5 mg of Decadron and 2.5 ML's of 1% lidocaine. The patient tolerated the procedure well. Compressive sterile dressing applied. Progress/Results/Core Measures Results/Orders My Orders Orders - CJ FIGUEROA Wrist, Right, 3 Views Or More (12/28/17 17:42) Dexamethasone Injection (Decadron Inject (12/28/17 18:30) Lidocaine 1% Injection (Xylocaine 1% Inj (12/28/17 18:19) Lidocaine 1% (Xylocaine 1%) (12/28/17 18:21) Dexamethasone Injection (Decadron Inject (12/28/17 18:21) Hydrocodone/Apap 5/325 Tablet (Lortab 5 (12/28/17 18:33) Rx-Hydrocodone/Apap 5-325 Mg (Rx-Vicodin (12/28/17 19:15) Medications Given in ED Current Medications Medications Dose Ordered Sig/Tam Route Start Time Stop Time Status Last Admin Dose Admin Dexamethasone Sodium Phosphate 5 mg ONCE ONCE INJ 12/28/17 18:30 12/28/17 18:31 DC 12/28/17 18:35 5 MG Lidocaine HCl 50 ml STK-MED ONCE .ROUTE 12/28/17 18:21 12/28/17 18:25 DC 12/28/17 18:35 50 ML Vital Signs/I&O Vital Sign - Last 12Hours 12/28/17 17:45 Temp 98.9 Pulse 104 Resp 16 B/P (MAP) 143/87 (105) Pulse Ox 97 O2 Delivery Room Air Blood Pressure Mean: 105 Progress Note : Time: 17:45 Progress Note Initial evaluation completed, recommended x-ray of the right wrist and reevaluation. Ice pack applied to right wrist. 1800 x-ray results show sclerotic changes at the first carpometacarpal joint. Patient evaluated by Dr. Pandey, incurred with assessment and treatment plan. Recommended steroid injection of the first CMC joint right hand. Patient agreed with this treatment plan. 182 patient had minimal relief of her symptoms after the steroid injection, she remained neurovascularly intact. Thumb spica splint applied and ice pack in place. 184 hydrocodone/APAP 5 mg/325 mg one by mouth for pain. 1914 patient reports some improvement in her right wrist pain. Discharge instructions and return precautions reviewed in detail with the patient and her . Diagnostic Imaging Diagonstic Imaging: Xray Plain Films/CT/US/NM/MRI: other (wrist) Comments NAME: [facility] REC#: [id number] PT STATUS: REG ER : 1940 PHYSICIAN: CJ FIGUEROA ADMIT DATE: 12/28/17/ER Draft Date of Exam:12/28/17 WRIST, RIGHT, 3 VIEWS OR MORE Clinical indication: Patient complains of pain in the right wrist since this morning. No injury. Exam: X-ray of the right wrist, 3 views. Comparison: None. Findings: There is osteopenia. There is no acute fracture seen. There is severe degenerative disease of the first CMC joint with mild radial directed subluxation of the first metacarpal bone in relation to the trapezium. There is severe joint space narrowing, hypertrophic spurs and sclerosis. There are also degenerative spurs involving the first IP joint and first MCP joint. Impression: 1: There is no acute fracture. 2: There are severe degenerative changes with mild subluxation involving the first CMC joint. 3: There is degenerative disease of the first digit. Dictated on workstation # [id number] Dict: 12/28/171818 Trans: 12/28/171826 [facility] [id number] Interpreted by: THERON BARR MD Electronically signed by: Departure Impression Impression: Primary Impression: Right wrist pain Additional Impression: Arthritis of carpometacarpal (CMC) joint of right thumb Disposition: 01 HOME, SELF-CARE Condition: Stable Departure-Patient Inst. Decision time for Depature: 19:00 Referrals: ALY,SERAFIN A MD (PCP/Family) Primary Care Physician Patient Instructions: Joint Pain Add. Discharge Instructions: Schedule appointment with orthopedics or the right wrist. Dr. Iyer: [phone] Tsang [phone] Use prescription pain pills every 6 hours for severe pain only. Wear brace as needed for right wrist and thumb pain. Ice to right wrist 20 minutes every 2 hours Return to emergency department for new injuries or problems. All discharge instructions reviewed with patient and/or family. Voiced understanding. Scripts Hydrocodone Bit/Acetaminophen (Hydrocodone/Acetaminophen 5/325mg Tablet) 1 Tab Tab 1 EACH PO Q6H Y for PAIN, #8 TAB 0 Refills Prov: CJ FIGUEROA 12/28/17 Copy Copies To 1: SERAFIN LU MD, AMY ARNP Dec 28, 2017 18:11
[2017-12-28] MEDS ORDERED: LIDOCAINE 1% INJ 20 ML (XYLOCAINE) VIAL INJ STA (18:19)
[2017-12-28] MEDS ORDERED: LIDOCAINE 1% INJ 50 ML (XYLOCAINE) VIAL ONE (18:21)
[2017-12-28] MEDS ORDERED: DEXAMETHASONE 10 MG/ML (DECADRON) 1 ML VIAL ONE (18:21)
--- NOTE | 2017-12-28 18:28 | Diagnostic Imaging Report ---
Clinical indication: Patient complains of pain in the right wrist since this morning. No injury. Exam: X-ray of the right wrist, 3 views. Comparison: None. Findings: There is osteopenia. There is no acute fracture seen. There is severe degenerative disease of the first CMC joint with mild radial directed subluxation of the first metacarpal bone in relation to the trapezium. There is severe joint space narrowing, hypertrophic spurs and sclerosis. There are also degenerative spurs involving the first IP joint and first MCP joint. Impression: 1: There is no acute fracture. 2: There are severe degenerative changes with mild subluxation involving the first CMC joint. 3: There is degenerative disease of the first digit. Dictated by: Dictated on workstation # [id number]
[2017-12-28] MEDS ORDERED: DEXAMETHASONE 10 MG/ML (DECADRON) 1 ML VIAL INJ ONE (18:30)
[2017-12-28] MEDS ORDERED: HYDROcodone/APAP 5 MG/325 MG (LORTAB) TAB PO STA (18:33)
[2017-12-28] MEDS ORDERED: RX-HYDROCODONE/APAP 5/325 MG #4 TAB PK PO PRN (19:15)
[2017-12-28] MEDS ORDERED: ACHD5005 PO (19:18)
[2017-12-28 19:26] VITALS: BP 141/91
== END 2017-12-28 19:28 | disposition home or self-care (01) ==
LOC: EDUNIT# 17:30 → ER 17:31
DX: M25.531 Pain in right wrist (principal); M18.11 Unilateral primary osteoarthritis of first carpometacarpal joint, right hand; I25.10 Atherosclerotic heart disease of native coronary artery without angina pectoris; F03.90 Unspecified dementia, unspecified severity, without behavioral disturbance, psychotic disturbance, mood disturbance, and anxiety; E11.9 Type 2 diabetes mellitus without complications; Z87.19 Personal history of other diseases of the digestive system; Z88.2 Allergy status to sulfonamides; Z79.82 Long term (current) use of aspirin; Z79.4 Long term (current) use of insulin; Z87.891 Personal history of nicotine dependence; Z90.710 Acquired absence of both cervix and uterus; Z90.89 Acquired absence of other organs
CPT/HCPCS: 73110

== ENCOUNTER → 2018-10-08 | Outpatient (CLI) | payer MEDICARE, OTHER ==
[~2018-10-08] MED LIST changes: +ACHD5005 PO; +IOHEXOL 350 MG/ML 150 ML (OMNIPAQUE 350) VIAL IV ONE; +METR-197 PO; -METR500T21 PO; +NS 100 ML (IVPB) BAG IV ONE; +RECEIVED CONTRAST (Hold Metformin) IV SCH; -ROPI0.25 PO; +ROPI0.253 PO
[2018-10-08 17:32] LABS: ALBUMIN 4.2 GM/DL (3.2-4.5); BILIRUBIN,TOTAL 0.3 MG/DL (0.1-1.0); CREATININE SERUM 1.02 MG/DL (0.60-1.30); POTASSIUM 3.9 MMOL/L (3.6-5.0); TOTAL PROTEIN 7.6 GM/DL (6.4-8.2)
--- NOTE | 2018-10-08 18:10 | Diagnostic Imaging Report ---
PROCEDURE: CT chest with contrast only. TECHNIQUE: Multiple contiguous axial images were obtained through the chest after administration of intravenous contrast. INDICATION: Chest pain, widened mediastinum. COMPARISON: None. FINDINGS: The heart is normal in size. No central pulmonary emboli are seen. There is aortic atherosclerosis. No dissection is seen. A small penetrating atherosclerotic ulcer or saccular aneurysm is seen at the posterior wall of the mid descending aorta in the thorax, measuring 11 x 8 x 9 mm in size. No mediastinal adenopathy is seen. There is a mildly prominent right hilar lymph node measuring 10 mm in the short axis (image 33, series 2). There is a moderate-sized hiatal hernia. No focal consolidation is seen in the lungs. No masses are identified. There is minimal atelectasis at the medial right lung base. No central endobronchial lesions are seen. No acute osseous abnormality is seen. Cholecystectomy clips are noted. No acute abnormality is seen in the upper abdomen. The right kidney is partially seen, but there appears to be cortical thinning. IMPRESSION: 1. Mildly prominent right hilar lymph node, maybe reactive. No acute pulmonary abnormality is seen. 2. 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 3. Moderate-sized hiatal hernia. Dictated by: Dictated on workstation # [id number]
== END ==
LOC: RAD 16:57
PROVIDERS: ATTEND Family Medicine
DX: I71.2 Thoracic aortic aneurysm, without rupture (principal); K44.9 Diaphragmatic hernia without obstruction or gangrene; R59.0 Localized enlarged lymph nodes; M54.6 Pain in thoracic spine; J01.00 Acute maxillary sinusitis, unspecified; I25.2 Old myocardial infarction; E78.89 Other lipoprotein metabolism disorders; K25.9 Gastric ulcer, unspecified as acute or chronic, without hemorrhage or perforation
CPT/HCPCS: 36415; 71260; 80053

== ENCOUNTER → 2018-11-12 | Outpatient (CLI) | payer MEDICARE, OTHER ==
[~2018-11-12] MED LIST changes: -IOHEXOL 350 MG/ML 150 ML (OMNIPAQUE 350) VIAL IV ONE; -NS 100 ML (IVPB) BAG IV ONE; -RECEIVED CONTRAST (Hold Metformin) IV SCH
--- NOTE | 2018-11-12 18:58 | Diagnostic Imaging Report ---
INDICATION: Neck pain. TIME OF EXAM: 01:46 p.m. FINDINGS: Three views of the cervical spine were obtained. Curvature is normal. There is minimal retrolisthesis of C5 on C6. Significant degenerative disc disease at the C5-C6 level is noted with disc space narrowing and marginal spurring. Disc disease to a lesser degree is noted at the C4-C5 level. Multilevel facet arthropathy is seen. The prevertebral tissues are within normal limits. No fractures are identified. Odontoid appears intact. IMPRESSION: Cervical spondylosis. No acute bony abnormality is detected. Dictated by: Dictated on workstation # [id number]
== END ==
LOC: RAD 13:07
DX: M47.812 Spondylosis without myelopathy or radiculopathy, cervical region (principal)
CPT/HCPCS: 72040

== ENCOUNTER → 2018-11-26 | Outpatient (CLI) | payer MEDICARE, OTHER ==
[~2018-11-26] MED LIST changes: +METR-145 PO; -METR-197 PO
[2018-11-26 13:32] LABS: ALBUMIN 4.2 GM/DL (3.2-4.5); BILIRUBIN,TOTAL 0.4 MG/DL (0.1-1.0); POTASSIUM 4.2 MMOL/L (3.6-5.0); TOTAL PROTEIN 7.8 GM/DL (6.4-8.2)
--- NOTE | 2018-11-26 13:58 | Diagnostic Imaging Report ---
PROCEDURE: MR imaging cervical spine without contrast. TECHNIQUE: Multiplanar, multisequence MR imaging of the cervical spine was performed without contrast. INDICATION: Neck pain. FINDINGS: There is straightening of the normal cervical lordosis. The vertebral body heights are well-maintained. The prevertebral soft tissues are within normal limits. Posterior fossa is unremarkable. Visualized portions of the spinal cord are normal in signal intensity and morphology. C2-3 is unremarkable. At C3-4 there is broad-based annular bulging and bilateral uncovertebral joint hypertrophy. There is mild spinal stenosis and moderate to severe bilateral neural foraminal encroachment. At C4-5 there is bilateral uncovertebral joint hypertrophy and minimal annular bulging. There is slight effacement of the ventral thecal sac and at least moderate bilateral neural foraminal encroachment. At C5-6 there is loss of disc height and signal intensity. There is broad-based annular bulging with bilateral uncovertebral joint hypertrophy right greater than left. There is moderate spinal stenosis. There is moderate to severe bilateral neural foraminal encroachment. At C6-7 there is minimal annular bulging. C7-T1 is unremarkable. IMPRESSION: Moderate cervical spondylosis and multilevel degenerative disc disease as described. Dictated by: Dictated on workstation # [id number]
== END ==
LOC: RAD 12:56
PROVIDERS: ATTEND Nurse Practitioner Family
DX: M50.30 Other cervical disc degeneration, unspecified cervical region (principal); M47.812 Spondylosis without myelopathy or radiculopathy, cervical region
CPT/HCPCS: 36415; 72141; 80053

== ENCOUNTER 2018-12-03 11:31 | Outpatient (RCR) | payer MEDICARE, OTHER | END 2018-12-28 08:46 | disposition home or self-care (01) | PROVIDERS: ATTEND Nurse Practitioner Family | DX: R26.81 Unsteadiness on feet (principal) ==

== ENCOUNTER 2019-03-29 13:24 | Emergency (ER) | payer MEDICARE, OTHER ==
[~2019-03-29] VITALS: Ht 165.1 cm; Wt 81.6 kg
--- NOTE | 2019-03-29 13:25 | NUR ---
pt here by rescue from home. pt been c/o dizziness and also been falling recently. ems tx includes iv pl, monitor, no o2, no drug tx, and transport. ems relates pt normally confused. family came in and said pt has bruise on a shoulder. and been c/o feet sore. currently pt alert gcs 14 neg 1 for occasional confusion. pt talkative w/o sighns of dyspnea. pt c/o nonspecific abd pain though said " left side". also c/o nausea last noc none now and relates shes been having v/d. pt denies dyspnea and no acute sighns of dyspnea noted. pt still dizzy. lungs cta bilaterally. abd soft and distended tender to palpation left side only. neg edema noted. tele applied shows sr 80. someone getting labs from ems iv. no obvious injury noted on my exam but i never checked the shoulders or the back. pt denies chest pain. pt said wrong month for yr but knows full name and where she is at. done tawanna pt at 1338.
[2019-03-29 13:51] LABS: BASOPHILS % (AUTO) 0 % (0-10); EOSINOPHILS % (AUTO) 0 % (0-10); HEMATOCRIT 36 % (35-52); HEMOGLOBIN 12.1 G/DL (11.5-16.0); LYMPHOCYTES # (AUTO) 1.5 X 10^3 (1.0-4.0); LYMPHOCYTES % (AUTO) 15 % (12-44); MEAN CORPUSCULAR HEMOGLOBIN 31 PG (25-34); MEAN CORPUSCULAR HGB CONC 34 G/DL (32-36); MEAN CORPUSCULAR VOLUME 93 FL (80-99); MEAN PLATELET VOLUME 9.2 FL (7.4-10.4); MONOCYTES # (AUTO) 0.4 X 10^3 (0.0-1.0); MONOCYTES % (AUTO) 4 % (0-12); NEUTROPHILS # (AUTO) 7.8 X 10^3 (1.8-7.8); NEUTROPHILS % (AUTO) 80 % (42-75); PLATELET COUNT 332 10^3/uL (130-400); RED CELL DISTRIBUTION WIDTH 13.1 % (10.0-14.5); WHITE BLOOD COUNT 9.8 10^3/uL (4.3-11.0)
--- NOTE | 2019-03-29 13:52 | NUR ---
ekg by me
[2019-03-29 14:11] LABS: ALBUMIN 4.3 GM/DL (3.2-4.5); BILIRUBIN,TOTAL 0.7 MG/DL (0.1-1.0); CALCIUM 9.8 MG/DL (8.5-10.1); CREATININE SERUM 1.07 MG/DL (0.60-1.30); MAGNESIUM 1.9 MG/DL (1.8-2.4); POTASSIUM 4.1 MMOL/L (3.6-5.0); TOTAL PROTEIN 7.4 GM/DL (6.4-8.2)
--- NOTE | 2019-03-29 14:17 | NUR ---
v/o dr elizabeth blood.
--- NOTE | 2019-03-29 14:21 | NUR ---
secretary receptionist and i getting results from [facility]
--- NOTE | 2019-03-29 14:27 | NUR ---
i am faxing form to [employer] so they can fax us u/s result.
--- NOTE | 2019-03-29 14:39 | NUR ---
i left computer meds unchanged. pt copy of home meds due not match up with [employer] and some important meds on computer that are not on pt home list paper provided to us.
--- NOTE | 2019-03-29 14:51 | NUR ---
pt still in u/s.
--- NOTE | 2019-03-29 14:59 | NUR ---
nurse sales and marketing intern will do the cath ua. pt back from u/s
--- NOTE | 2019-03-29 15:24 | NUR ---
luis by finance intern w/o problems.
[2019-03-29 15:32] LABS: BILIRUBIN,URINE NEGATIVE (NEGATIVE); CLARITY,URINE CLEAR; COLOR,URINE YELLOW; GLUCOSE, URINE (UA) 1+ (NEGATIVE); KETONES,URINE NEGATIVE (NEGATIVE); LEUKOCYTE ESTERASE ,URINE 2+ (NEGATIVE); NITRITE,URINE NEGATIVE (NEGATIVE); PH,URINE 5 (5-9); PROTEIN,URINE 2+ (NEGATIVE); UROBILINOGEN,URINE NORMAL (NORMAL)
--- NOTE | 2019-03-29 15:32 | Diagnostic Imaging Report ---
PROCEDURE: US carotid duplex bilateral. TECHNIQUE: Multiple Real-time grayscale images were obtained over the carotid arteries in various projections bilaterally. Additional spectral analysis and color Doppler duplex images were also obtained. INDICATION: Dizziness and fall. FINDINGS: There is plaquing in the distal common carotid arteries bilaterally. The velocities within both common carotid arteries are normal. The velocity in the proximal right ICA is normal. The mid and distal ICA cannot be visualized due to high bifurcation. There is a large amount of plaque identified in the proximal left ICA. The velocities are significantly elevated in the proximal left ICA at 329 cm/s. The right external carotid artery was not seen due to high bifurcation. The left external carotid artery is unremarkable. Both vertebral arteries show antegrade flow. IMPRESSION: High-grade (80-99%) stenosis of the proximal left ICA. MEASUREMENTS: Parameters based on the consensus panel Gavin-Scale and Doppler ultrasound criteria published August 2003, Radiology, Volume 229. DOPPLER (peak systolic velocity M/S Right Left CCA .94 .80 ICA Proximal .62 3.29 ICA Mid NOT SEEN .84 ICA Distal NOT SEEN .62 RATIO .65 4.14 ECA NOT SEEN 1.2 VERT .7 .5 Dictated by: Dictated on workstation # [id number]
--- NOTE | 2019-03-29 15:38 | ED Syncope ---
General Chief Complaint: Dizziness/Syncope Stated Complaint: DIZZINESS/FALL Nursing Triage Note: pt here by rescue from home. pt c/o dizziness and been falling recently. Source of Information: Patient, EMS, Family, Old Records Exam Limitations: Other (dementia) History of Present Illness Date Seen by Provider: Mar 29, 2019 Time Seen by Provider: 13:27 Initial Comments This 78-year-old woman presents to the emergency room via EMS after having a fall at home. She slid out of the chair and onto the floor without any traumatic injury. She denies any pain. She has been complaining of lightheadedness recently and has had multiple falls. She had an unwitnessed fall 2 days ago. She has confusion from dementia but has been more confused in recent days. She's been wearing a scopolamine patch for dizziness and nausea. Fingerstick blood sugar for EMS was 201. They report she was initially very hypertensive with a blood pressure of 210/130 follow by 185/77. This is trending down on arrival. Allergies and Home Medications Allergies Uncoded Allergies: SULFA (Allergy, Severe, 04/12/10) Home Medications Alprazolam 0.25 Mg Tablet, 0.125 MG PO BID PRN for ANXIETY Prescribed by: SERAFIN LU on 12/18/17914 Aspirin 81 Mg Tablet.dr, 81 MG PO DAILY, (Reported) Cholestyramine/Aspartame 4 Gm Powd.pack, 4 GM PO BID Prescribed by: SERAFIN LU on 12/18/17914 Diltiazem HCl 180 Mg Cap.er.24h, 180 MG PO DAILY, (Reported) Furosemide 40 Mg Tablet, 40 MG PO DAILY PRN for SWELLING, (Reported) Hydrocodone Bit/Acetaminophen 1 Tab Tab, 1 EACH PO Q6H PRN for PAIN Prescribed by: CJ FIGUEROA on 12/28/171917 Insulin Glargine,Hum.rec.anlog 100 Unit/1 Ml Insuln.pen, 10 UNITS SC HS, (Reported) L. Acidophilus/Bulgaricus 1 Each Tablet, 1 TAB.CHEW PO AC Prescribed by: SERAFIN LU on 12/18/17914 Lactobacillus Acidophilus 1 Each Capsule, 1 CAP PO HS, (Reported) Memantine HCl 10 Mg Tablet, 10 MG PO BID, (Reported) Metronidazole 500 Mg Tablet, 500 MG PO TID Prescribed by: SERAFIN LU on 12/18/17914 Naproxen Na-Diphenhydramin HCl 1 Each Tablet, 1 TAB PO HS PRN for SLEEP, (Reported) Nitrofurantoin Monohyd/M-Cryst 100 Mg Capsule, 100 MG PO BID Prescribed by: SERAFIN LU on 12/18/17914 Ropinirole HCl 0.25 Mg Tablet, 0.25 MG PO BID, (Reported) Sucralfate 1 Gm Tablet, 1 GM PO ACHS Prescribed by: SERAFIN LU on 12/18/17914 Tramadol HCl 50 Mg Tablet, 50 MG PO TID PRN for PAIN-MODERATE, (Reported) [Acid Relief 360] , 1 CAP PO BID, (Reported) [Prevagen] , 1 TAB.CHEW PO HS, (Reported) Patient Home Medication List Home Medication List Reviewed: Yes Review of Systems Constitutional: no symptoms reported EENTM: no symptoms reported Respiratory: no symptoms reported Cardiovascular: see HPI Gastrointestinal: no symptoms reported Genitourinary: no symptoms reported : No Musculoskeletal: no symptoms reported Skin: no symptoms reported Psychiatric/Neurological: See HPI Past Mntuwkz-Vbflon-Uwatqm Hx Past Med/Social Hx: Reviewed Nursing Past Med/Soc Hx Patient Social History Alcohol Use: Denies Use Recreational Drug Use: No Smoking Status: Never a Smoker Former Smoker, Quit: Oct 27, 1976 2nd Hand Smoke Exposure: No Recent Foreign Travel: No Contact w/Someone Who Travel: No Recent Infectious Disease Expo: No Recent Hopitalizations: No Physical Abuse: No Sexual Abuse: No Immunizations Up To Date Date of Pneumonia Vaccine: Sep 08, 2012 Date of Influenza Vaccine: Jul 23, 2017 Seasonal Allergies Seasonal Allergies: No Past Medical History Surgeries: Yes (BILATERAL KNEE SCOPE, BREAST BX, COLONOSCOPY) Gallbladder, Hysterectomy, Orthopedic, Tonsillectomy Respiratory: No Cardiac: Yes Coronary Artery Disease Neurological: Yes (CURRENT MEMORY PROBLEMS (NEURO EVAL IN JUL 2017)) Dementia Genitourinary: No Gastrointestinal: Yes Irritable Bowel Musculoskeletal: No Endocrine: Yes Diabetes, Non-Insulin dep HEENT: Yes Cancer: No Psychosocial: No Integumentary: No Blood Disorders: No Family Medical History Patient reports no known family medical history. Hypertension Physical Exam Vital Signs Vital Signs - First Documented 03/29/19 13:25 Temp 100.2 Pulse 72 Resp 16 B/P (MAP) 154/75 (101) Pulse Ox 97 O2 Delivery Room Air Capillary Refill : Less Than 3 Seconds Height, Weight, BMI Height: 5'5.00" Weight: 180lbs. 0.0oz. 81.178726ya; 26.9 BMI Method:Stated General Appearance: No Apparent Distress, WD/WN HEENT: PERRL/EOMI, Normal ENT Inspection Neck: Normal Inspection Cardiovascular: Regular Rate, Rhythm, No Edema, No Murmur Respiratory: Lungs Clear, Normal Breath Sounds, No Accessory Muscle Use, No Respiratory Distress Gastrointestinal: Normal Bowel Sounds, Soft, Tenderness (Subtle tenderness in the left) Extremities: Normal Inspection, No Pedal Edema Neurologic/Psychiatric: Alert, No Motor/Sensory Deficits, Normal Mood/Affect, explosive operator II-XII Norm as Tested, Other (Confused speech) Cranial Nerves: Normal Hearing, Normal Speech, PERRL Coordination/Gait: Normal Gait Motor/Sensory: No Motor Deficit, No Sensory Deficit Skin: Normal Color, Warm/Dry Progress/Results/Core Measures Results/Orders Lab Results Laboratory Tests Test 03/29/19 13:30 03/29/19 15:24 Range/Units White Blood Count 9.8 4.3-11.0 10^3/uL Red Blood Count 3.87 L 4.35-5.85 10^6/uL Hemoglobin 12.1 11.5-16.0 G/DL Hematocrit 36 35-52 % Mean Corpuscular Volume 93 80-99 FL Mean Corpuscular Hemoglobin 31 25-34 PG Mean Corpuscular Hemoglobin Concent 34 32-36 G/DL Red Cell Distribution Width 13.1 10.0-14.5 % Platelet Count 332 130-400 10^3/uL Mean Platelet Volume 9.2 7.4-10.4 FL Neutrophils (%) (Auto) 80 H 42-75 % Lymphocytes (%) (Auto) 15 12-44 % Monocytes (%) (Auto) 4 0-12 % Eosinophils (%) (Auto) 0 0-10 % Basophils (%) (Auto) 0 0-10 % Neutrophils # (Auto) 7.8 1.8-7.8 X 10^3 Lymphocytes # (Auto) 1.5 1.0-4.0 X 10^3 Monocytes # (Auto) 0.4 0.0-1.0 X 10^3 Eosinophils # (Auto) 0.0 0.0-0.3 10^3/uL Basophils # (Auto) 0.0 0.0-0.1 10^3/uL Sodium Level 136 135-145 MMOL/L Potassium Level 4.1 3.6-5.0 MMOL/L Chloride Level 102 98-107 MMOL/L Carbon Dioxide Level 23 21-32 MMOL/L Anion Gap 11 5-14 MMOL/L Blood Urea Nitrogen 17 7-18 MG/DL Creatinine 1.07 0.60-1.30 MG/DL Estimat Glomerular Filtration Rate 49 BUN/Creatinine Ratio 16 Glucose Level 200 H 70-105 MG/DL Calcium Level 9.8 8.5-10.1 MG/DL Corrected Calcium 9.6 8.5-10.1 MG/DL Magnesium Level 1.9 1.8-2.4 MG/DL Total Bilirubin 0.7 0.1-1.0 MG/DL Aspartate Amino Transf (AST/SGOT) 26 5-34 U/L Alanine Aminotransferase (ALT/SGPT) 33 0-55 U/L Alkaline Phosphatase 55 40-136 U/L Total Protein 7.4 6.4-8.2 GM/DL Albumin 4.3 3.2-4.5 GM/DL Lipase 36 8-78 U/L Urine Color YELLOW Urine Clarity CLEAR Urine pH 5 5-9 Urine Specific [place] 1.025 H 1.016-1.022 Urine Protein 2+ H NEGATIVE Urine Glucose (UA) 1+ H NEGATIVE Urine Ketones NEGATIVE NEGATIVE Urine Nitrite NEGATIVE NEGATIVE Urine Bilirubin NEGATIVE NEGATIVE Urine Urobilinogen NORMAL NORMAL MG/DL Urine Leukocyte Esterase 2+ H NEGATIVE Urine RBC (Auto) 3+ H NEGATIVE Urine RBC NONE /HPF Urine WBC 2-5 /HPF Urine Renal Epithelial Cells 2-5 /HPF Urine Crystals NONE /LPF Urine Bacteria FEW H /HPF Urine Casts NONE /LPF Urine Mucus NEGATIVE /LPF Urine Culture Indicated NO My Orders Orders - THOMAS SONG MD Cbc With Automated Diff (03/29/19 13:37) Comprehensive Metabolic Panel (03/29/19 13:37) Magnesium (03/29/19 13:37) Ua Culture If Indicated (03/29/19 13:37) Ed Iv/Invasive Line Start (03/29/19 13:37) Ekg Tracing (03/29/19 13:37) Monitor-Rhythm Ecg Trace Only (03/29/19 13:37) Us Carotid Edy Complete 92177 (03/29/19 13:37) Lipase (03/29/19 13:30) Chest Pa/Lat (2 View) (03/29/19 16:20) Vital Signs/I&O 03/29/19 03/29/19 03/29/19 13:25 16:20 17:50 Temp 100.2 99.1 100.3 Pulse 72 64 64 Resp 16 16 16 B/P (MAP) 154/75 (101) 160/101 (120) 134/68 (90) Pulse Ox 97 94 94 O2 Delivery Room Air Room Air Room Air Blood Pressure Mean: 101 Progress Progress Note : Progress Note Patient seems to primarily complain of lightheadedness upon standing, not vertigo. She had a carotid ultrasound performed at [facility] a month ago but I do not have access to these results. Carotid ultrasound was repeated and she was found to have severe stenosis of the ICA on the left. I discussed the case with Dr. Majano at [facility] who recommends close outpatient follow-up. An appointment was arranged for next . Patient had marginal temperatures, and a chest x-ray and urinalysis were obtained to assess for infection. No pneumonia or urinary tract infection was identified. Initial ECG Impression Date: Mar 29, 2019 Initial ECG Impression Time: 13:50 Initial ECG Rate: 68 Initial ECG Rhythm: Normal Sinus Initial ECG Intervals: Normal Initial ECG Impression: Normal Comment Normal sinus rhythm with no ST elevation or depression. No abnormal intervals or axis deviation. Diagnostic Imaging Diagonstic Imaging: Ultrasound Plain Films/CT/US/NM/MRI: other (bilateral carotid arteries) Comments NAME: MARGE NASSAR [facility] REC#: [id number] PT STATUS: REG ER : 1940 PHYSICIAN: THOMAS SONG MD ADMIT DATE: 03/29/19/ER Draft Date of Exam:03/29/19 US CAROTID EDY COMPLETE [id number] PROCEDURE: US carotid duplex bilateral. TECHNIQUE: Multiple Real-time grayscale images were obtained over the carotid arteries in various projections bilaterally. Additional spectral analysis and color Doppler duplex images were also obtained. INDICATION: Dizziness and fall. FINDINGS: There is plaquing in the distal common carotid arteries bilaterally. The velocities within both common carotid arteries are normal. The velocity in the proximal right ICA is normal. The mid and distal ICA cannot be visualized due to high bifurcation. There is a large amount of plaque identified in the proximal left ICA. The velocities are significantly elevated in the proximal left ICA at 329 cm/s. The right external carotid artery was not seen due to high bifurcation. The left external carotid artery is unremarkable. Both vertebral arteries show antegrade flow. IMPRESSION: High-grade (80-99%) stenosis of the proximal left ICA. MEASUREMENTS: Parameters based on the consensus panel Gavin-Scale and Doppler ultrasound criteria published August 2003, Radiology, Volume 229. DOPPLER (peak systolic velocity M/S Right Left CCA .94 .80 ICA Proximal .62 3.29 ICA Mid NOT SEEN .84 ICA Distal NOT SEEN .62 RATIO .65 4.14 ECA NOT SEEN 1.2 VERT .7 .5 Dictated on workstation # [id number] Dict: 03/29/19 1527 Trans: 03/29/19 1532 [id number] Interpreted by: DENISE CORDOVA MD Reviewed: Reviewed by Me Departure Impression Primary Impression: Carotid artery stenosis Qualified Codes: I65.22 - Occlusion and stenosis of left carotid artery Additional Impressions: Syncope Qualified Codes: R55 - Syncope and collapse Frequent falls Disposition: 01 HOME, SELF-CARE Condition: Improved Departure-Patient Inst. Referrals: JESICA SIMPSON MD (PCP/Family) Primary Care Physician Patient Instructions: Carotid Artery Stenosis (DC) Add. Discharge Instructions: Please follow-up with Dr. Majano at Dr. Sage's office at [facility] in [place] on April 01 at 10:00. The address is [facility]. [address] [place] [address], second floor. Please ambulate with assistance and be supervised at all times until you are assessed at the vascular clinic. Return to the emergency room if you have worsening symptoms. Stay well-hydrated and continue on your current medications. All discharge instructions reviewed with patient and/or family. Voiced understanding. Copy Copies To 1: JESICA SIMPSON MD, JOSHUA T MD Mar 29, 2019 15:38
[2019-03-29 15:54] LABS: BACTERIA,URINE FEW /HPF
--- NOTE | 2019-03-29 16:18 | NUR ---
pt remains alert gcs 14 neg 1 confusion. family remains in the room. pt denies chest and abd pain. denies nausea and no v/d notd in er visit thus far. no acute sighns of dyspnea noted. dr in room talking with family. i told dr about low grade temp. tele shows sr 62. pt still c/o dizziness
[2019-03-29 16:20] VITALS: BP 160/101
--- NOTE | 2019-03-29 16:51 | Diagnostic Imaging Report ---
EXAM: CHEST PA/LAT (TWO VIEWS). INDICATION: Dizziness. Fall. COMPARISON: CT chest with IV contrast 10/08/2018. FINDINGS: Normal heart size and central pulmonary vascularity. Calcified aorta. No focal pulmonary opacity, pleural effusion, or pneumothorax. No acute osseous findings. IMPRESSION: No acute cardiopulmonary findings. Dictated by: Dictated on workstation # [id number]
[2019-03-29 17:50] VITALS: BP 134/68
--- NOTE | 2019-03-29 17:50 | NUR ---
d/c instructions to family. told to read all papers. no scripts given. pt left in w/c with family . i helped pt to the car. family knows f/u. i went over the handtyped by information on the chart. iv d/cd by me prior to d/c. disk from xray given to family.
--- OUTSIDE RECORDS SUMMARY | 2019-03-29 22:13 | XMS REPORT | Clinical Summary ---
Author Author [facility] Organization [facility] Address Unknown Phone Unavailable Care Team Providers Care Non Emergency Services Ambulance Driver Name Role Phone Jc Davis MD PCP Soumya Omer MD Unavailable Source Comments Some departments are not documenting in the electronic medical record. If you d o not see the information that you expected, contact Release of Information in [facility] [employer] Information Management department at [phone] for further assistan ce in locating additional records.[facility] Allergies Comments Active Allergy Reactions Severity Noted Date Sulfa (Sulfonamide RASH 01/10/2012 Antibiotics) Medications End Date Status Medication Sig Dispensed Refills Start Date Active atorvastatin (LIPITOR) 20 Take 20 mg by 0 mg tablet mouth daily. Active fenofibrate micronized Take 134 mg 0 (LOFIBRA) 134 mg capsule by mouth daily. Active atenolol (TENORMIN) 25 mg Take 25 mg by 0 tablet mouth daily. Active esomeprazole DR(+) Take 40 mg by 0 (NEXIUM) 40 mg capsule mouth daily. Active isosorbide mononitrate SR Take 60 mg by 0 (IMDUR) 60 mg tablet mouth every morning. Active aspirin EC 81 mg tablet Take 81 mg by 0 mouth daily. Active ALPRAZolam (XANAX) 0.25 Take 0.25 mg 0 mg tablet by mouth every 6 hours as needed. Active nitroglycerin Take 1 [place] 0 (NITROLINGUAL) 0.4 by mouth mg/dose translingual every 5 spray minutes as needed. Active furosemide (LASIX) 40 mg Take 40 mg by 0 tablet mouth as Needed. Active potassium chloride SR Take 20 mEq 0 (K-DUR) 20 mEq tablet by mouth as Needed. Active diphenoxylate/atropine Take 1 Tab by 0 (LOMOTIL) 2.5/0.025 mg mouth four tablet times daily as needed. Active budesonide (ENTOCORT EC) 3 po q day 168 Cap 0 3 mg capsule 2 Active Mesalamine (ASACOL HD) Take 3 Tabs 180 Tab 3 800 mg TbEC by mouth 2 twice daily. Active Problems Problem Noted Date Microscopic colitis 02/20/2012 Overview: Diagnosed 01/05 Intestinal bacterial overgrowth, small bowel 02/20/2012 Overview: Diagnosed 01/05; treated with metronidazole x 2 weeks Social History Date Tobacco Use Types Packs/Day Years Used Quit: 02/19/2006 Former Smoker Alcohol Use Drinks/Week oz/Week Comments Yes occasional Sex Assigned at Date Recorded Not on file Industry Job Start Date Occupation Not on file Not on file Not on file Travel End Travel History Travel Start No recent travel history available. Last Filed Vital Signs Time Taken Vital Sign Reading 02/20/2012 2:37 PM CDT Blood Pressure 128/58 02/20/2012 2:37 PM CDT Pulse 63 02/20/2012 2:37 PM CDT Temperature 36.6 C (97.9 F) 02/20/2012 2:37 PM CDT Respiratory Rate 20 - Oxygen Saturation - - Inhaled Oxygen - Concentration 02/20/2012 2:37 PM CDT Weight 71.3 kg (157 lb 3.2 oz) 02/20/2012 2:37 PM CDT Height 162.6 cm (5' 4") 02/20/2012 2:37 PM CDT Body Mass Index 26.98 Plan of Treatment Health Maintenance Due Date Last Done Comments PHYSICAL (COMPREHENSIVE) 1946 EXAM DTAP/TDAP VACCINES (1 - 1957 Tdap) SHINGLES RECOMBINANT 1989 VACCINE (1 of 2) OSTEOPOROSIS 2004 SCREENING/MONITORING PNEUMONIA (PCV13/PPSV23) 2004 VACCINES (1 of 2 - PCV13) INFLUENZA VACCINE 07/27/2019 Results Not on filefrom Last 3 Months
--- OUTSIDE RECORDS SUMMARY | 2019-03-29 22:13 | XMS REPORT | CCD ---
Author Author Porsha Lyles MD, [facility] Address [address] [place] [address] Phone Care Team Providers Care Rheumatology Specialist Name Role Phone PP Unavailable CCM Unavailable Summary Purpose Interface Exchange Insurance Providers Payer name Policy type / Coverage type Covered democrat ID Effective Begin Date Effective End Date [employer] [employer] Medicare Part B [id number] Unknown Unknown [employer] Medicare Part B [id number] Unknown Unknown Family history Father Diagnosis Age At Onset Coronary Artery Disease Unknown Sister Diagnosis Age At Onset Asthma Unknown Mother Diagnosis Age At Onset Breast cancer Unknown Social History Social History Element Codes Description Effective Dates Marital status Unknown Hugh 03/11/2017 Number of children Unknown 3 03/11/2017 Employment Unknown Retired 03/11/[address]: 0940752 Former smoker Quit 199603/11/2017 Alcohol history Unknown pt chooses not to answer 03/11/2017 Allergies, Adverse Reactions, Alerts Substance Reaction Codes Entered Date Inactivated Date Status SULFA (SULFONAMIDES) _ Unknown 03/11/2017 No Inactive Date Active Past Medical History Illness Codes Condition Status Onset Date Resolved Date Cerebral ischemia ICD-9: 437.1 ICD-10: I67.82 Active 04/01/2017 Unknown Essential (primary) hypertension ICD-9: 401.9 ICD-10: I10 Active 03/11/2017 Unknown Generalized anxiety disorder ICD-9: 300.02 ICD-10: F41.1 Active 03/11/2017 Unknown Mixed hyperlipidemia ICD- 9: 272.2 ICD-10: E78.2 Active 03/11/2017 Unknown Vascular dementia without behavioral disturbance ICD-9: 290.40 ICD-10: F01.50 Active 04/01/2017 Unknown Hyperglycemia, unspecified ICD-9: 790.29 ICD-10: R73.9 Active 03/13/2017 Unknown Hypertension Unknown Active 03/11/2017 Unknown Encounter for screening mammogram for malignant neoplasm of breast ICD-9: V76.12 ICD-10: Z12.31 Active 03/11/2017 Unknown Mixed irritable bowel syndrome ICD-9: 564.1 ICD-10: K58.2 Active 03/11/2017 Unknown Unspecified dementia without behavioral disturbance ICD-9: 294.20 ICD-10: F03.90 Active 03/11/2017 Unknown Problems Condition Codes Effective Dates Condition Status Cerebral ischemia ICD-9: 437.1 ICD-10: I67.82 04/01/2017 Active Essential (primary) hypertension ICD-9: 401.9 ICD-10: I10 03/11/2017 Active Generalized anxiety disorder ICD-9: 300.02 ICD-10: F41.1 03/11/2017 Active Mixed hyperlipidemia ICD- 9: 272.2 ICD-10: E78.2 03/11/2017 Active Vascular dementia without behavioral disturbance ICD-9: 290.40 ICD-10: F01.50 04/01/2017 Active Hyperglycemia, unspecified ICD-9: 790.29 ICD-10: R73.9 03/13/2017 Active Hypertension Unknown 03/11/2017 Active Encounter for screening mammogram for malignant neoplasm of breast ICD-9: V76.12 ICD-10: Z12.31 03/11/2017 Active Mixed irritable bowel syndrome ICD-9: 564.1 ICD-10: K58.2 03/11/2017 Active Unspecified dementia without behavioral disturbance ICD-9: 294.20 ICD-10: F03.90 03/11/2017 Active Medications Medication Codes Instructions Start Date Stop Date Status Fill Instructions meclizine 25 mg chewable tablet RxNorm: 630001 1 Tablet(s) PO Q6 PRN 04/14/2017 No Stop Date Active verapamil ER 120 mg 24 hr capsule,extended release RxNorm: 151983 1 Capsule(s) PO daily 04/14/2017 10/10/2017 Active rosuvastatin 5 mg tablet RxNorm: 914900 1 Tablet(s) PO daily 04/01/2017 03/26/2018 Active Namenda XR 7 mg-14 mg-21 mg-28 mg capsule,sprinkle,ER 24hr,dose pack RxNorm: 907111 1 Capsule(s) PO daily 03/11/2017 04/09/2017 Inactive alprazolam 0.25 mg tablet RxNorm: 351809 1 Tablet(s) PO Q6 as needed No Start Date Active Xifaxan 550 mg tablet RxNorm: 981760 1 Tablet(s) PO BID No Start Date Active Imodium A-D 2 mg capsule RxNorm: 425190 1 Capsule(s) PO as needed No Start Date Active aspirin 81 mg tablet RxNorm: 457643 1 Tablet(s) PO daily No Start Date Active pantoprazole 40 mg tablet,delayed release RxNorm: 407705 1 Tablet(s) PO daily No Start Date Active cholecalciferol (vitamin D3) 1,000 unit tablet RxNorm: 507297 1 Tablet(s) PO daily No Start Date Active Nitrolingual 400 mcg/spray RxNorm: 647129 [place] as needed No Start Date Active cyclobenzaprine 10 mg tablet RxNorm: 564599 1 Tablet(s) PO TID as needed Start with 1 at HS No Start Date Active simethicone 180 mg capsule RxNorm: 860474 1 Capsule(s) PO as needed No Start Date Active isosorbide mononitrate ER 30 mg tablet,extended release 24 hr RxNorm: 468618 1 Tablet(s) PO daily No Start Date Active furosemide 40 mg tablet RxNorm: 305726 1 Tablet(s) PO daily as needed leg swelling No Start Date Active Lidoderm 5 % topical patch RxNorm: 9259592 1 Patch TOP to affected area as needed No Start Date Active tramadol 50 mg tablet RxNorm: 257820 1-2 Tablet(s) PO Q6 as needed No Start Date Active hyoscyamine 0.125 mg sublingual tablet RxNorm: 0787040 1 Tablet(s) SL daily No Start Date Active meclizine 25 mg chewable tablet RxNorm: 012624 2 Tablet(s) PO Q4H No Start Date 04/13/2017 Inactive verapamil 120 mg tablet RxNorm: 199369 1 Tablet(s) PO daily No Start Date 04/13/2017 Inactive rosuvastatin oral RxNorm: oral No Start Date 03/31/2017 Inactive Medication Administered No Medication Administered data Immunizations No Immunization data Assessments Condition Codes Effective Dates Mixed hyperlipidemia ICD-10: E78.2 ICD-9: 272.2 04/01/2017 Essential (primary) hypertension ICD-10: I10 ICD-9: 401.9 04/01/2017 Vascular dementia without behavioral disturbance ICD-10: F01.50 ICD-9: 290.40 04/01/2017 Cerebral ischemia ICD-10: I67.82 ICD-9: 437.1 04/01/2017 Generalized anxiety disorder ICD-10: F41.1 ICD-9: 300.02 04/01/2017 Hyperglycemia, unspecified ICD-10: R73.9 ICD-9: 790.29 03/13/2017 Encounter for screening mammogram for malignant neoplasm of breast ICD-10: Z12.31 ICD-9: V76.12 03/11/2017 Unspecified dementia without behavioral disturbance ICD-10: F03.90 ICD-9: 294.20 03/11/2017 Mixed irritable bowel syndrome ICD-10: K58.2 ICD-9: 564.1 03/11/2017 Reason For Visit Reason For Visit Effective Dates Notes increased abdominal girth 04/01/2017 short term memories increased abdominal girth 03/11/2017 short term memories Results Observation Observation Code Item Item Code Result Date %Hba1C [id number] % HbA1c 39546- 6 7.2 % 03/13/2017 %Hba1C Bwd540 Gluc Ave 160 mg/dL 03/13/2017 Rpr 550493 RPR NON-REACTIVE 03/12/2017 B12 Vfi495 B12 584.00 pg/ml 03/11/2017 Tsh Ord6 hTSH II 1.52 uIU/mL 03/11/2017 Folate Ord36 Folate >23.30 ng/mL 03/11/2017 Comp Metabolic Myi622 NA 138 mEq/L 03/11/2017 Comp Metabolic Rcw333 K 4.4 mEq/L 03/11/2017 Comp Metabolic Avp878 CL 104 mEq/L 03/11/2017 Comp Metabolic Pwe737 CO2 24.0 mEq/L 03/11/2017 Comp Metabolic Sxr500 ANION GAP 14 03/11/2017 Comp Metabolic Rzf433 GLUCOSE 135 mg/dL 03/11/2017 Comp Metabolic Cok457 Creat 1.0 mg/dL 03/11/2017 Comp Metabolic Zty574 eGFR 60 ml/min/1.73m2 03/11/2017 Comp Metabolic Kkw810 BUN 16 mg/dL 03/11/2017 Comp Metabolic Elu825 B/C Ratio 16.7 Ratio 03/11/2017 Comp Metabolic Rev710 CALCIUM 9.4 mg/dL 03/11/2017 Comp Metabolic Ofs120 ALK PHOS 61 U/L 03/11/2017 Comp Metabolic Zaq331 AST(SGOT) 36 U/L 03/11/2017 Comp Metabolic Huo033 ALT(SGPT) 48 U/L 03/11/2017 Comp Metabolic Vdr252 BILI T 0.4 mg/dL 03/11/2017 Comp Metabolic Tpi538 ALBUMIN 4.2 g/dL 03/11/2017 Comp Metabolic Pyw926 TPRO 7.0 g/dL 03/11/2017 Comp Metabolic Uun545 GLOB 2.8 g/dL 03/11/2017 Comp Metabolic Cmu094 A/G Ratio 1.5 Ratio 03/11/2017 Comp Metabolic Svm685 Osmo 279 mOsmo 03/11/2017 Cbc With Differential Ord2 WBC 9.01 K/ul 03/11/2017 Cbc With Differential Ord2 RBC 3.91 M/ul 03/11/2017 Cbc With Differential Ord2 HGB 12.8 g/dl 03/11/2017 Cbc With Differential Ord2 HCT 37.6 % 03/11/2017 Cbc With Differential Ord2 Neut% 57.7 % 03/11/2017 Cbc With Differential Ord2 Lymph% 31.3 % 03/11/2017 Cbc With Differential Ord2 MCV 96.2 fl 03/11/2017 Cbc With Differential Ord2 MCH 32.7 pg 03/11/2017 Cbc With Differential Ord2 [place]% 8.5 % 03/11/2017 Cbc With Differential Ord2 Eos% 1.8 % 03/11/2017 Cbc With Differential Ord2 MCHC 34.0 pg 03/11/2017 Cbc With Differential Ord2 Baso% 0.7 % 03/11/2017 Cbc With Differential Ord2 PLT 338 K/ul 03/11/2017 Cbc With Differential Ord2 Neut ABS# 5.20 K/ul 03/11/2017 Cbc With Differential Ord2 RDW 13.4 % 03/11/2017 Cbc With Differential Ord2 Lymph ABS# 2.82 K/ul 03/11/2017 Cbc With Differential Ord2 [place] ABS# 0.8 K/ul 03/11/2017 Cbc With Differential Ord2 Eos ABS# 0.2 K/ul 03/11/2017 Cbc With Differential Ord2 Baso ABS# 0.1 K/ul 03/11/2017 Vitamin D 25 Oh Nsd1983 VITAMIN D, 25 HYDROXY 50.48 ng/mL 03/11/2017 Review of Systems System Result Effective Dates Constitutional No recent illness 04/01/2017 Constitutional No anorexia 04/01/2017 Constitutional No night sweats 04/01/2017 Constitutional No chills 04/01/2017 Constitutional No diaphoresis 04/01/2017 Constitutional No fatigue 04/01/2017 Constitutional No fever 04/01/2017 Constitutional insomnia 04/01/2017 Constitutional No malaise 04/01/2017 Eyes No eye discharge 04/01/2017 Eyes No eye erythema 04/01/2017 Ears/Nose/Throat/Neck dizziness 04/01/2017 Ears/Nose/Throat/Neck No headache 04/01/2017 Ears/Nose/Throat/Neck No nasal allergies 04/01/2017 Ears/Nose/Throat/Neck No nasal discharge 04/01/2017 Cardiovascular chest pain/pressure 04/01/2017 Cardiovascular No dyspnea 04/01/2017 Cardiovascular No edema 04/01/2017 Respiratory No productive sputum 04/01/2017 Gastrointestinal abdominal pain 04/01/2017 Gastrointestinal constipation 04/01/2017 Gastrointestinal diarrhea 04/01/2017 Gastrointestinal gas and bloating 04/01/2017 Gastrointestinal No nausea 04/01/2017 Gastrointestinal No vomiting 04/01/2017 Genitourinary/Nephrology No dysuria 04/01/2017 Musculoskeletal joint complaint 04/01/2017 Dermatologic No rash 04/01/2017 Dermatologic No sores 04/01/2017 Neurologic memory loss 04/01/2017 Psychiatric anxiety 04/01/2017 Psychiatric depression 04/01/2017 Psychiatric disturbances of memory 04/01/2017 Gastrointestinal abdominal pain 03/11/2017 Gastrointestinal constipation 03/11/2017 Gastrointestinal diarrhea 03/11/2017 Gastrointestinal gas and bloating 03/11/2017 Gastrointestinal No vomiting 03/11/2017 Gastrointestinal No nausea 03/11/2017 Genitourinary/Nephrology No dysuria 03/11/2017 Constitutional No recent illness 03/11/2017 Constitutional No anorexia 03/11/2017 Constitutional No night sweats 03/11/2017 Constitutional No chills 03/11/2017 Constitutional No diaphoresis 03/11/2017 Constitutional No fatigue 03/11/2017 Constitutional No fever 03/11/2017 Constitutional insomnia 03/11/2017 Constitutional No malaise 03/11/2017 Constitutional No weight loss 03/11/2017 Constitutional weight gain 03/11/2017 Eyes No eye discharge 03/11/2017 Eyes No eye erythema 03/11/2017 Ears/Nose/Throat/Neck dizziness 03/11/2017 Ears/Nose/Throat/Neck No headache 03/11/2017 Ears/Nose/Throat/Neck No nasal discharge 03/11/2017 Ears/Nose/Throat/Neck No nasal allergies 03/11/2017 Cardiovascular chest pain/pressure 03/11/2017 Cardiovascular No dyspnea 03/11/2017 Cardiovascular No edema 03/11/2017 Respiratory No productive sputum 03/11/2017 Musculoskeletal joint complaint 03/11/2017 Dermatologic No rash 03/11/2017 Dermatologic No sores 03/11/2017 Neurologic memory loss 03/11/2017 Psychiatric anxiety 03/11/2017 Psychiatric depression 03/11/2017 Physical Exam Exam Name System Name Item Name Status Result Effective Dates Notes Full Exam - General 1994 Constitutional general appearance Overall: well developed 04/01/2017 None Full Exam - General 1994 Constitutional general appearance Overall: in no acute distress 04/01/2017 None Full Exam - General 1994 Constitutional general appearance Overall: well nourished 04/01/2017 None Full Exam - General 1994 Eyes conjunctiva/eyelids Overall: conjunctiva clear 04/01/2017 None Full Exam - General 1994 Eyes pupils and irises Overall: pupils equal, round, reactive to light and accomodation 04/01/2017 None Full Exam - General 1994 Ears/Nose/Throat otoscopic exam Overall: external auditory canals clear 04/01/2017 None Full Exam - General 1994 Ears/Nose/Throat otoscopic exam Overall: tympanic membranes clear 04/01/2017 None Full Exam - General 1994 Ears/Nose/Throat otoscopic exam Tympanic membrane: air-fluid level 04/01/2017 None Full Exam - General 1994 Ears/Nose/Throat oral cavity/pharynx/larynx Overall: oral mucosa clear 04/01/2017 None Full Exam - General 1994 Respiratory auscultation Overall: breath sounds clear bilaterally 04/01/2017 None Full Exam - General 1994 Respiratory respiratory effort/rhythm Overall: no retractions 04/01/2017 None Full Exam - General 1994 Respiratory respiratory effort/rhythm Overall: normal rate 04/01/2017 None Full Exam - General 1994 Cardiovascular auscultation of heart Overall: regular rate 04/01/2017 None Full Exam - General 1994 Cardiovascular auscultation of heart Overall: normal heart sounds 04/01/2017 None Full Exam - General 1994 Cardiovascular auscultation of heart Overall: no murmurs 04/01/2017 None Full Exam - General 1994 Abdomen abdominal exam Overall: no tenderness 04/01/2017 None Full Exam - General 1994 Abdomen abdominal exam Overall: normal bowel sounds 04/01/2017 None Full Exam - General 1994 Abdomen abdominal exam Contour: rounded 04/01/2017 None Full Exam - General 1994 Lymphatic neck nodes Overall: anterior cervical chain benign 04/01/2017 None Full Exam - General 1994 Lymphatic neck nodes Overall: posterior cervical chain benign 04/01/2017 None Full Exam - General 1994 Musculoskeletal gait and station Overall: normal gait 04/01/2017 None Full Exam - General 1994 Musculoskeletal gait and station Overall: normal station 04/01/2017 None Full Exam - General 1994 Integument inspection of skin Overall: few scattered moles, no gross abnormalities 04/01/2017 None Full Exam - General 1994 Neurologic cranial nerves Overall: crainial nerves 2 - 12 grossly intact 04/01/2017 None Full Exam - General 1994 Psychiatric orientation/consciousness Overall: oriented to person, place and time 04/01/2017 None Full Exam - General 1994 Constitutional general appearance Overall: well developed 03/11/2017 None Full Exam - General 1994 Constitutional general appearance Overall: in no acute distress 03/11/2017 None Full Exam - General 1994 Constitutional general appearance Overall: well nourished 03/11/2017 None Full Exam - General 1994 Psychiatric orientation/consciousness Overall: oriented to person, place and time 03/11/2017 None Full Exam - General 1994 Neurologic cranial nerves Overall: crainial nerves 2 - 12 grossly intact 03/11/2017 None Full Exam - General 1994 Integument inspection of skin Overall: few scattered moles, no gross abnormalities 03/11/2017 None Full Exam - General 1994 Musculoskeletal gait and station Overall: normal gait 03/11/2017 None Full Exam - General 1994 Musculoskeletal gait and station Overall: normal station 03/11/2017 None Full Exam - General 1994 Lymphatic neck nodes Overall: anterior cervical chain benign 03/11/2017 None Full Exam - General 1994 Lymphatic neck nodes Overall: posterior cervical chain benign 03/11/2017 None Full Exam - General 1994 Abdomen abdominal exam Overall: no tenderness 03/11/2017 None Full Exam - General 1994 Abdomen abdominal exam Contour: rounded 03/11/2017 None Full Exam - General 1994 Abdomen abdominal exam Overall: normal bowel sounds 03/11/2017 None Full Exam - General 1994 Cardiovascular auscultation of heart Overall: regular rate 03/11/2017 None Full Exam - General 1994 Cardiovascular auscultation of heart Overall: normal heart sounds 03/11/2017 None Full Exam - General 1994 Cardiovascular auscultation of heart Overall: no murmurs 03/11/2017 None Full Exam - General 1994 Respiratory auscultation Overall: breath sounds clear bilaterally 03/11/2017 None Full Exam - General 1994 Respiratory respiratory effort/rhythm Overall: normal rate 03/11/2017 None Full Exam - General 1994 Respiratory respiratory effort/rhythm Overall: no retractions 03/11/2017 None Full Exam - General 1994 Ears/Nose/Throat otoscopic exam Overall: external auditory canals clear 03/11/2017 None Full Exam - General 1994 Ears/Nose/Throat otoscopic exam Overall: tympanic membranes clear 03/11/2017 None Full Exam - General 1994 Ears/Nose/Throat otoscopic exam Tympanic membrane: air-fluid level 03/11/2017 None Full Exam - General 1994 Ears/Nose/Throat oral cavity/pharynx/larynx Overall: oral mucosa clear 03/11/2017 None Full Exam - General 1994 Eyes conjunctiva/eyelids Overall: conjunctiva clear 03/11/2017 None Full Exam - General 1994 Eyes pupils and irises Overall: pupils equal, round, reactive to light and accomodation 03/11/2017 None Procedures No Procedures data Vital Signs Date Vital 04/01/2017 Blood Pressure 1: 138/72 Code: 8480-6 BMI: 29.9 Code: 32389-8 Heart Rate 1: 93 bpm Height: 5'4" SpO2: 98% Weight: 174 lbs 03/11/2017 Blood Pressure 1: 122/68 Code: 8480-6 BMI: 30.0 Code: 34519-5 Heart Rate 1: 80 bpm Height: 5'4" SpO2: 96% Weight: 174 lbs 8 oz Functional Status No Functional Status data History of Present Illness Symptom Name Status Result Effective Date Notes increased abdominal girth Quality acute 04/01/2017 None increased abdominal girth Quality chronic 04/01/2017 None increased abdominal girth Onset and Resolution ongoing 04/01/2017 None increased abdominal girth Severity moderate 04/01/2017 None increased abdominal girth Pertinent Findings abdominal distension 04/01/2017 goes between constipation and diarrhea increased abdominal girth Pertinent Findings bloating 04/01/2017 None increased abdominal girth Pertinent Findings heartburn 04/01/2017 None increased abdominal girth Pertinent Findings intermittent abdominal pain 04/01/2017 None memory loss Limitation on Activities does not limit activities 04/01/2017 None memory loss Triggers no known associated factors 04/01/2017 None memory loss Pertinent Findings Denies ataxia 04/01/2017 None memory loss Pertinent Findings Denies difficulty reading 04/01/2017 None memory loss Pertinent Findings Denies difficulty writing 04/01/2017 None memory loss Pertinent Findings Denies motor deficits 04/01/2017 None memory loss Pertinent Findings Denies personality changes 04/01/2017 None memory loss Pertinent Findings sensory deficits 04/01/2017 None memory loss Quality acute 04/01/2017 None memory loss Quality loss of prior memories 04/01/2017 None memory loss Onset and Resolution ongoing 04/01/2017 None increased abdominal girth Quality acute 03/11/2017 None increased abdominal girth Quality chronic 03/11/2017 None increased abdominal girth Onset and Resolution ongoing 03/11/2017 None increased abdominal girth Severity moderate 03/11/2017 None increased abdominal girth Pertinent Findings abdominal distension 03/11/2017 goes between constipation and diarrhea increased abdominal girth Pertinent Findings bloating 03/11/2017 None increased abdominal girth Pertinent Findings heartburn 03/11/2017 None increased abdominal girth Pertinent Findings intermittent abdominal pain 03/11/2017 None memory loss Limitation on Activities does not limit activities 03/11/2017 None memory loss Quality acute 03/11/2017 None memory loss Quality loss of prior memories 03/11/2017 None memory loss Onset and Resolution ongoing 03/11/2017 None memory loss Pertinent Findings sensory deficits 03/11/2017 None memory loss Pertinent Findings Denies difficulty reading 03/11/2017 None memory loss Pertinent Findings Denies difficulty writing 03/11/2017 None memory loss Pertinent Findings Denies ataxia 03/11/2017 None memory loss Pertinent Findings Denies motor deficits 03/11/2017 None memory loss Pertinent Findings Denies personality changes 03/11/2017 None memory loss Triggers no known associated factors 03/11/2017 None Advance Directives No Advance Directive data Encounters Encounter Performer Location Codes ([id number]) [id number] EST. PATIENT, LEVEL IV Diagnosis: Mixed hyperlipidemia[ICD10: E78.2] Diagnosis: Generalized anxiety disorder[ICD10: F41.1] Diagnosis: Essential (primary) hypertension[ICD10: I10] Diagnosis: Cerebral ischemia[ICD10: I67.82] Diagnosis: Vascular dementia without behavioral disturbance[ICD10: F01.50] [facility] CPT-4: [id number] 04/01/2017 ([id number]) OFFICE VISIT, NEW - LEVEL 4 Diagnosis: Mixed irritable bowel syndrome[ICD10: K58.2] Diagnosis: Unspecified dementia without behavioral disturbance[ICD10: F03.90] Diagnosis: Essential (primary) hypertension[ICD10: I10] Diagnosis: Generalized anxiety disorder[ICD10: F41.1] Diagnosis: Encounter for screening mammogram for malignant neoplasm of breast[ICD10: Z12.31] Diagnosis: Mixed hyperlipidemia[ICD10: E78.2] [facility] CPT- 4: [id number] 03/11/2017 Plan of Care Planned Activity Notes Codes Status Date Appointment: [facility] [phone] [phone] (30 min) Complex 04/10/2017 [facility]ment[facility] [phone] [id number] ([facility] min[facility] Moderate 04/01/2017 Patient Education: Patient Medication Summary Completed 04/01/2017 Patient Education: Hypertension Completed 04/01/2017 Patient Education: Patient Medication Summary Completed 03/13/2017 Patient Education: Patient Medication Summary Completed 03/11/2017 Patient Education: Obesity Completed 03/11/2017 Instructions No Instructions
--- OUTSIDE RECORDS SUMMARY | 2019-03-29 22:14 | XMS REPORT | CCD ---
Author Author Porsha Lyles MD, [facility] Address [address] [place] [address] Phone Care Team Providers Care President [employer] Name Role Phone PP Unavailable CCM Unavailable Summary Purpose Interface Exchange Insurance Providers Payer name Policy type / Coverage type Covered constitution party ID Effective Begin Date Effective End Date [employer] [employer] Medicare Part B [id number] Unknown Unknown [employer] Medicare Part B [id number] Unknown Unknown Family history Father Diagnosis Age At Onset Coronary Artery Disease Unknown Sister Diagnosis Age At Onset Asthma Unknown Mother Diagnosis Age At Onset Breast cancer Unknown Social History Social History Element Codes Description Effective Dates Marital status Unknown Hugh 03/11/2017 Number of children Unknown 3 03/11/2017 Employment Unknown Retired 03/11/[address]: 3110926 Former smoker Quit 199603/11/2017 Alcohol history Unknown [...] Start Date Stop Date Status Fill Instructions rosuvastatin 5 mg tablet RxNorm: 259940 1 Tablet(s) PO daily 04/01/2017 03/26/2018 Active Namenda XR 7 mg-14 mg-21 mg-28 mg capsule,sprinkle,ER 24hr,dose pack RxNorm: 005210 1 Capsule(s) PO daily 03/11/2017 04/09/2017 Active alprazolam 0.25 mg tablet RxNorm: 043162 1 Tablet(s) PO Q6 as needed No Start Date Active Xifaxan 550 mg tablet RxNorm: 229901 1 Tablet(s) PO BID No Start Date Active Imodium A-D 2 mg capsule RxNorm: 760725 1 Capsule(s) PO as needed No Start Date Active aspirin 81 mg tablet RxNorm: 892435 1 Tablet(s) PO daily No Start Date Active meclizine 25 mg chewable tablet RxNorm: 820783 2 Tablet(s) PO Q4H No Start Date Active verapamil 120 mg tablet RxNorm: 357284 1 Tablet(s) PO daily No Start Date Active pantoprazole 40 mg tablet,delayed release RxNorm: 352047 1 Tablet(s) PO daily No Start Date Active cholecalciferol (vitamin D3) 1,000 unit tablet RxNorm: 899026 1 Tablet(s) PO daily No Start Date Active Nitrolingual 400 mcg/spray RxNorm: 244157 [place] TL as needed No Start Date Active cyclobenzaprine 10 mg tablet RxNorm: 057030 1 Tablet(s) PO TID as needed Start with 1 at HS No Start Date Active simethicone 180 mg capsule RxNorm: 410690 1 Capsule(s) PO as needed No Start Date Active isosorbide mononitrate ER 30 mg tablet,extended release 24 hr RxNorm: 505876 1 Tablet(s) PO daily No Start Date Active furosemide 40 mg tablet RxNorm: 772884 1 Tablet(s) PO daily as needed leg swelling No Start Date Active Lidoderm 5 % topical patch RxNorm: 4830196 1 Patch TOP to affected area as needed No Start Date Active tramadol 50 mg tablet RxNorm: 779893 1-2 Tablet(s) PO Q6 as needed No Start Date Active hyoscyamine 0.125 mg sublingual tablet RxNorm: 0021128 1 Tablet(s) SL daily No Start Date Active rosuvastatin oral RxNorm: oral No Start Date [...] Code Item Item Code Result Date %Hba1C Qat589 % HbA1c 66124- 6 7.2 % 03/13/2017 %Hba1C Cwz678 Gluc Ave 160 mg/dL 03/13/2017 Rpr 623317 RPR NON-REACTIVE 03/12/2017 B12 Eou841 B12 584.00 pg/ml 03/11/2017 Tsh Ord6 hTSH II 1.52 uIU/mL 03/11/2017 Folate Ord36 Folate >23.30 ng/mL 03/11/2017 Comp Metabolic Wji290 NA 138 mEq/L 03/11/2017 Comp Metabolic Pvc949 K 4.4 mEq/L 03/11/2017 Comp Metabolic Chx818 CL 104 mEq/L 03/11/2017 Comp Metabolic Ymt881 CO2 24.0 mEq/L 03/11/2017 Comp Metabolic Ijq026 ANION GAP 14 03/11/2017 Comp Metabolic Dzd466 GLUCOSE 135 mg/dL 03/11/2017 Comp Metabolic Bqq777 Creat 1.0 mg/dL 03/11/2017 Comp Metabolic Nhb211 eGFR 60 ml/min/1.73m2 03/11/2017 Comp Metabolic Sin753 BUN 16 mg/dL 03/11/2017 Comp Metabolic Qhn485 B/C Ratio 16.7 Ratio 03/11/2017 Comp Metabolic Aps691 CALCIUM 9.4 mg/dL 03/11/2017 Comp Metabolic Hyk387 ALK PHOS 61 U/L 03/11/2017 Comp Metabolic Htn154 AST(SGOT) 36 U/L 03/11/2017 Comp Metabolic Tdr877 ALT(SGPT) 48 U/L 03/11/2017 Comp Metabolic Nmd485 BILI T 0.4 mg/dL 03/11/2017 Comp Metabolic Trm576 ALBUMIN 4.2 g/dL 03/11/2017 Comp Metabolic Ipm518 TPRO 7.0 g/dL 03/11/2017 Comp Metabolic Zlc460 GLOB 2.8 g/dL 03/11/2017 Comp Metabolic Esn310 A/G Ratio 1.5 Ratio 03/11/2017 Comp Metabolic Lxi885 Osmo 279 mOsmo 03/11/2017 Cbc With Differential Ord2 WBC 9.01 K/ul 03/11/2017 Cbc With Differential Ord2 RBC 3.91 M/ul 03/11/2017 Cbc With Differential Ord2 HGB 12.8 g/dl 03/11/2017 Cbc With Differential Ord2 Neut% 57.7 % 03/11/2017 Cbc With Differential Ord2 HCT 37.6 % 03/11/2017 Cbc With Differential Ord2 Lymph% 31.3 % 03/11/2017 Cbc With Differential Ord2 MCV 96.2 fl 03/11/2017 Cbc With Differential Ord2 MCH 32.7 pg 03/11/2017 Cbc With Differential Ord2 Dunn% 8.5 % 03/11/2017 Cbc With Differential Ord2 MCHC 34.0 pg 03/11/2017 Cbc With Differential Ord2 Eos% 1.8 % 03/11/2017 Cbc With Differential Ord2 PLT 338 K/ul 03/11/2017 Cbc With Differential Ord2 Baso% 0.7 % 03/11/2017 Cbc With Differential Ord2 Neut ABS# 5.20 K/ul 03/11/2017 Cbc With Differential Ord2 RDW 13.4 % 03/11/2017 Cbc With Differential Ord2 Lymph ABS# 2.82 K/ul 03/11/2017 Cbc With Differential Ord2 Dunn ABS# 0.8 K/ul 03/11/2017 Cbc With Differential Ord2 Eos ABS# 0.2 K/ul 03/11/2017 Cbc With Differential Ord2 Baso ABS# 0.1 K/ul 03/11/2017 Vitamin D 25 Oh [id number] VITAMIN D, 25 HYDROXY 50.48 ng/mL 03/11/2017 [...] 1: 138/72 Code: 8480-6 BMI: 29.9 Code: 13690-4 Heart Rate 1: 93 bpm Height: 5'4" SpO2: 98% Weight: 174 lbs 03/11/2017 Blood Pressure 1: 122/68 Code: 8480-6 BMI: 30.0 Code: 05183-5 Heart Rate 1: 80 bpm Height: 5'4" [...] Directive data Encounters Encounter Performer Location Codes Date EST. PATIENT, LEVEL IV Diagnosis: Mixed hyperlipidemia[ICD10: E78.2] Diagnosis: Generalized anxiety disorder[ICD10: F41.1] Diagnosis: Essential (primary) hypertension[ICD10: I10] Diagnosis: Cerebral ischemia[ICD10: I67.82] Diagnosis: Vascular dementia without behavioral disturbance[ICD10: F01.50] Luli Aly MD, [facility] CPT-4: 96184 04/01/2017 ([id number]) OFFICE VISIT, NEW - LEVEL 4 Diagnosis: Mixed irritable bowel syndrome[ICD10: K58.2] Diagnosis: Unspecified dementia without behavioral disturbance[ICD10: F03.90] Diagnosis: Essential (primary) hypertension[ICD10: I10] Diagnosis: Generalized anxiety disorder[ICD10: F41.1] Diagnosis: Encounter for screening mammogram for malignant neoplasm of breast[ICD10: Z12.31] Diagnosis: Mixed hyperlipidemia[ICD10: E78.2] [facility] CPT- 4: 43911 03/11/2017 Plan of Care Planned Activity Notes Codes Status Date Visit Plan: Hypertension - well controlled - continue with current medications, continue with no added salt diet. Pt has been encouraged to exercise daily.The pt has been advised to call the office if there are any acute concerns about change in blood pressure readings at home.Abdominal bloating - continue with current treatment regimenVascular dementia with mild symptoms - continue current supportive care. 04/01/2017 Appointment: Luli Aly WPtel: [address] [place], [place] [id number] (15 min) Moderate 04/01/2017 Patient Education: Patient Medication Summary Completed 04/01/2017 Patient Education: Hypertension Completed 04/01/2017 Patient Education: Patient Medication Summary Completed 03/13/2017 Visit Plan: Hypertension - well controlled - continue with current medications, continue with no added salt diet. Pt has been encouraged to exercise daily.The pt has been advised to call the office if there are any acute concerns about change in blood pressure readings at home.Memory loss-scored 16/30 on [facility] exam-see scanned documentation-Dr Aly in to evaluate patient-start Namenda- check labs and MRI brain-follow up in 1 month as directed Mixed IBS-seeing Dr Montano-on xifaxan-recommend gluten free diet 03/11/2017 Patient Education: Patient Medication Summary Completed 03/11/2017 Patient Education: Obesity Completed 03/11/2017 Instructions Comment Nasal spray- use twice daily, one spray per nostril twice daily, after 30 minutes, rinse out nose with saline spray.. Use opposite hand per nostril to spray in the nasal steroid allergy spray. . Hypertension - well controlled - continue with current medications, continue with no added salt diet. Pt has been encouraged to exercise daily. The pt has been advised to call the office if there are any acute concerns about change in blood pressure readings at home. Abdominal bloating - continue with current treatment regimen Vascular dementia with mild symptoms - continue current supportive care. MRI Brain -also schedule mammogram Labs Namenda starter pack Recommend gluten free diet . Hypertension - well controlled - continue with current medications, continue with no added salt diet. Pt has been encouraged to exercise daily. The pt has been advised to call the office if there are any acute concerns about change in blood pressure readings at home. Memory loss-scored 16/30 on [facility] exam-see scanned documentation-Dr Aly in to evaluate patient-start Namenda-check labs and MRI brain-follow up in 1 month as directed Mixed IBS-seeing Dr Montano-on xifaxan-recommend gluten free diet
--- OUTSIDE RECORDS SUMMARY | 2019-03-29 22:15 | XMS REPORT | Continuity of Care Document ---
Author Organization Unknown Address Unknown Allergies Active Description Code Type Severity Reaction Onset Reported/Identified Relationship to Patient Clinical Status Yes SULFA SULFA Severe N/A 04/12/2010 Medications There is no data. Problems Date Dx Coded Attending Type Code Diagnosis Diagnosed By ROQUE ECHAVARRIA APRN Ot R26.81 UNSTEADINESS ON FEET 02/05/2012 Ot 413.9 ANGINA PECTORIS NEC/NOS 02/05/2012 [...] BARAJAS DO Ot 414.01 CORONARY ATHEROSCLEROSIS OF [place] CORON 09/08/2014 SANJAY BARAJAS DO Ot 706.2 SEBACEOUS CYST 09/09/2014 SANJAY BARAJAS DO Ot 706.2 09/09/2014 SANJAY BARAJAS DO Ot V72.83 09/09/2014 SANJAY BARAJAS DO Ot V74.8 03/25/2015 NEIL SILVERMAN DO Ot V76.12 03/26/2017 MIGUEL ALLRED Ot Z12.31 ENCNTR SCREEN MAMMOGRAM FOR MALIGNANT NE 03/26/2017 Ot V76.12 OTH SCREEN MAMMO- MALIGN NEOPLASM OF [place] 03/26/2017 Ot 536.8 STOMACH FUNCTION DIS NEC 03/26/2017 Ot 787.3 FLATUL/ERUCTAT/GAS PAIN 03/26/2017 Ot 787.91 DIARRHEA 03/26/2017 Ot V76.12 OTH SCREEN MAMMO- MALIGN NEOPLASM OF [place] 03/26/2017 NEIL SILVERMAN DO Ot V76.12 OTH SCREEN MAMMO-MALIGN NEOPLASM OF [place] 03/26/2017 SANJAY BARAJAS DO Ot 706.2 SEBACEOUS CYST 03/26/2017 SANJAY BARAJAS DO Ot V72.83 EXAM PRE-OPERATIVE NEC 03/26/2017 BARAJAS SANJAY RADER [place] Ot V74.8 SCREEN-BACTERIAL DIS NEC 03/26/2017 NEIL SILVERMAN DO Ot V76.12 OTH SCREEN MAMMO-MALIGN NEOPLASM OF [place] 03/26/2017 MIGUEL ALLRED REPORT SPECIALIST Ot Z12.31 ENCNTR SCREEN MAMMOGRAM FOR MALIGNANT NE 03/26/2017 Ot V76.12 OTH SCREEN MAMMO- MALIGN NEOPLASM OF [place] 03/26/2017 Ot 536.8 STOMACH FUNCTION DIS NEC 03/26/2017 Ot 787.3 FLATUL/ERUCTAT/GAS PAIN 03/26/2017 Ot 787.91 DIARRHEA 03/26/2017 Ot V76.12 OTH SCREEN MAMMO- MALIGN NEOPLASM OF [place] 03/26/2017 NEIL SILVERMAN DO Ot V76.12 OTH SCREEN MAMMO-MALIGN NEOPLASM OF [place] 03/26/2017 BARAJAS SANJAY RADER Ot 706.2 SEBACEOUS CYST 03/26/2017 BARAJAS SANJAY RADER Ot V72.83 EXAM PRE-OPERATIVE NEC 03/26/2017 SANJAY BARAJAS DO Ot V74.8 SCREEN-BACTERIAL DIS NEC 03/26/2017 NEIL SILVERMAN DO W Ot V76.12 OTH SCREEN MAMMO-MALIGN NEOPLASM OF [place] 03/26/2017 MIGUEL ALLRED REPORT SPECIALIST Ot Z12.31 ENCNTR SCREEN MAMMOGRAM FOR MALIGNANT NE 04/01/2017 MIGUEL ALLRED REPORT SPECIALIST Ot Z12.31 ENCNTR SCREEN MAMMOGRAM FOR MALIGNANT NE 04/15/2017 MIGUEL ALLRED REPORT SPECIALIST Ot Z12.31 ENCNTR SCREEN MAMMOGRAM FOR MALIGNANT NE 07/23/2017 YOUSIF GARCIA, TANVI Coto Ot E11.9 TYPE 2 DIABETES MELLITUS WITHOUT COMPLIC 07/23/2017 TANVI DODD MD Ot H57.12 OCULAR PAIN, LEFT EYE 07/23/2017 TANVI DODD MD Ot I25.10 ATHSCL HEART DISEASE OF [place] CORONARY 07/23/2017 TANVI DODD MD Ot 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 07/23/2017 TANVI DODD MD Ot X58.XXXA EXPOSURE TO OTHER SPECIFIED FACTORS, INI 07/23/2017 TANVI DODD MD Ot Z79.82 RESTORER LACE AND TEXTILES (CURRENT) USE OF ASPIRIN 07/23/2017 TANVI DODD [...] MD Ot I25.10 ATHSCL HEART DISEASE OF [place] CORONARY 07/25/2017 TANVI DODD MD Ot 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 07/25/2017 TANVI DODD MD Ot X58.XXXA EXPOSURE TO OTHER SPECIFIED FACTORS, INI 07/25/2017 TANVI DODD MD Ot Z79.82 LONG-TERM (CURRENT) USE OF ASPIRIN 07/25/2017 TANVI DODD [...] OCULAR PAIN, LEFT EYE 07/29/2017 TANVI DODD MD Ot I25.10 ATHSCL HEART DISEASE OF [place] CORONARY 07/29/2017 TANVI DODD MD Ot 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 07/29/2017 TANVI DODD MD Ot X58.XXXA EXPOSURE TO OTHER SPECIFIED FACTORS, INI 07/29/2017 TANVI DODD MD Ot Z79.82 RESTORER LACE AND TEXTILES (CURRENT) USE OF ASPIRIN 07/29/2017 TANVI DODD MD, Ot Z87.19 PERSONAL HISTORY OF OTHER DISEASES OF [place] 07/29/2017 TANVI DODD MD, Ot Z87.891 PERSONAL HISTORY OF NICOTINE DEPENDENCE 07/29/2017 TANVI DODD MD, Ot Z90.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 ABSENCE OF BOTH CERVIX AND UTER 07/29/2017 TANVI DODD MD Ot Z90.89 ACQUIRED ABSENCE [...] MD Ot I25.10 ATHSCL HEART DISEASE OF [place] CORONARY 12/17/2017 SERAFIN LU MD Ot K58.2 [...] MD Ot I25.10 ATHSCL HEART DISEASE OF [place] CORONARY 12/18/2017 SERAFIN LU MD Ot K44.9 DIAPHRAGMATIC HERNIA WITHOUT OBSTRUCTION 12/18/2017 SERAFIN LU MD Ot 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 12/18/2017 SERAFIN LU MD Ot N17.9 ACUTE KIDNEY FAILURE, UNSPECIFIED 12/18/2017 SERAFIN LU MD Ot N39.0 URINARY TRACT INFECTION, SITE NOT SPECIF 12/18/2017 SERAFIN LU MD Ot R19.7 DIARRHEA, UNSPECIFIED 12/28/2017 CJ FIGUEROAP Ot E11.9 TYPE 2 DIABETES MELLITUS WITHOUT COMPLIC 12/28/2017 CJ FIGUEROA Ot F03.90 UNSPECIFIED DEMENTIA WITHOUT BEHAVIORAL 12/28/2017 CJ FIGUEROAP Ot I25.10 ATHSCL HEART DISEASE OF [place] CORONARY 12/28/2017 [place] CJ REPORT SPECIALIST Ot 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 12/28/2017 CJ FIGUEROAP Ot M25.531 PAIN IN RIGHT WRIST 12/28/2017 CJ FIGUEROAP Ot Z79.4 RESTORER LACE AND TEXTILES (CURRENT) USE OF INSULIN 12/28/2017 [place] CJ REPORT SPECIALIST Ot Z79.82 RESTORER LACE AND TEXTILES (CURRENT) USE OF ASPIRIN 12/28/2017 CJ FIGUEROA REPORT SPECIALIST Ot Z87.19 PERSONAL HISTORY OF OTHER DISEASES OF TH 12/28/2017 CJ FIGUEROAP Ot Z87.891 PERSONAL HISTORY OF NICOTINE DEPENDENCE 12/28/2017 CJ FIGUEROAP Ot Z88.2 ALLERGY STATUS TO SULFONAMIDES STATUS 12/28/2017 CJ FIGUEROAP Ot Z90.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 ABSENCE OF BOTH CERVIX AND UTER 12/28/2017 CJ FIGUEROA REPORT SPECIALIST Ot Z90.89 ACQUIRED ABSENCE OF OTHER ORGANS 12/30/2017 [place] CJ DUARTEP Ot E11.9 TYPE 2 DIABETES MELLITUS WITHOUT COMPLIC 12/30/2017 CAROLINACJ ByersP Ot F03.90 UNSPECIFIED DEMENTIA WITHOUT BEHAVIORAL 12/30/2017 CAROLINACJ ByersP Ot I25.10 ATHSCL HEART DISEASE OF [place] CORONARY 12/30/2017 CAROLINACJ Byers Ot 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 12/30/2017 CAROLINACJ Byers Ot M25.531 PAIN IN RIGHT WRIST 12/30/2017 CAROLINACJ Byers Ot Z79.4 RESTORER LACE AND TEXTILES (CURRENT) USE OF INSULIN 12/30/2017 CAROLINACJ ByersP Ot Z79.82 RESTORER LACE AND TEXTILES (CURRENT) USE OF ASPIRIN 12/30/2017 CAROLINACJ ByersP Ot Z87.19 PERSONAL HISTORY OF OTHER DISEASES OF TH 12/30/2017 CAROLINACJP Ot Z87.891 PERSONAL HISTORY OF NICOTINE DEPENDENCE 12/30/2017 CAROLINACJ Byers Ot Z88.2 ALLERGY STATUS TO SULFONAMIDES STATUS 12/30/2017 CAROLIAN, CJ DUARTEP Ot Z90.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 ABSENCE OF BOTH CERVIX AND UTER 12/30/2017 CAROLINACJ ByersP Ot Z90.89 ACQUIRED ABSENCE OF OTHER ORGANS 10/08/2018 NEIL SILVERMAN DO Ot V76.12 OTH SCREEN MAMMO-MALIGN NEOPLASM OF [place] 10/08/2018 SANJAY BARAJAS DO Ot 706.2 SEBACEOUS CYST 10/08/2018 SANJAY BARAJAS DO Ot V72.83 EXAM PRE-OPERATIVE NEC 10/08/2018 SANJAY BARAJAS DO Ot V74.8 SCREEN-BACTERIAL DIS NEC 10/08/2018 NEIL SILVERMAN DO Ot V76.12 OTH SCREEN MAMMO-MALIGN NEOPLASM OF [place] 10/08/2018 MIGUEL ALLRED Ot Z12.31 ENCNTR SCREEN MAMMOGRAM FOR MALIGNANT NE 10/09/2018 COSENS DO, KADY L Ot 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 10/09/2018 COSENS DO, KADY L Ot I25.2 OLD MYOCARDIAL INFARCTION 10/09/2018 COSENS DO, KADY L Ot I71.2 THORACIC AORTIC ANEURYSM, WITHOUT RUPTUR 10/09/2018 COSENS DO, KADY L Ot J01.00 ACUTE MAXILLARY SINUSITIS, UNSPECIFIED 10/09/2018 COSENS DO, KADY L Ot K25.9 GASTRIC ULCER, UNSP ACUTE OR CHRONIC, 10/09/2018 COSENS DO, KADY L Ot K44.9 DIAPHRAGMATIC HERNIA WITHOUT OBSTRUCTION 10/09/2018 COSENS DO, KADY L Ot M54.6 PAIN IN THORACIC SPINE 10/09/2018 COSENS DO, KADY L Ot R59.0 LOCALIZED ENLARGED LYMPH NODES 10/14/2018 COSENS DO, KADY L Ot 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 10/14/2018 COSENS DO, KADY L Ot I25.2 OLD MYOCARDIAL INFARCTION 10/14/2018 COSENS DO, KADY L Ot I71.2 THORACIC AORTIC ANEURYSM, WITHOUT RUPTUR 10/14/2018 COSENS DO, KADY L Ot J01.00 ACUTE MAXILLARY SINUSITIS, UNSPECIFIED 10/14/2018 COSENS DO, KADY L Ot K25.9 GASTRIC ULCER, UNSP ACUTE OR CHRONIC, 10/14/2018 COSENS DO, KADY L Ot K44.9 DIAPHRAGMATIC HERNIA WITHOUT OBSTRUCTION 10/14/2018 COSENS DO, KADY L Ot M54.6 PAIN IN THORACIC SPINE 10/14/2018 COSENS DO, KADY L Ot R59.0 LOCALIZED ENLARGED LYMPH NODES 10/29/2018 COSENS DO, KADY L Ot 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 10/29/2018 COSENS DO, KADY L Ot I25.2 OLD MYOCARDIAL INFARCTION 10/29/2018 COSENS DO, KADY L Ot I71.2 THORACIC AORTIC ANEURYSM, WITHOUT RUPTUR 10/29/2018 COSENS DO, KADY L Ot J01.00 ACUTE MAXILLARY SINUSITIS, UNSPECIFIED 10/29/2018 COSENS DO, KADY L Ot K25.9 GASTRIC ULCER, UNSP ACUTE OR CHRONIC, 10/29/2018 COSENS DO, KADY L Ot K44.9 DIAPHRAGMATIC HERNIA WITHOUT OBSTRUCTION 10/29/2018 COSENS DO, KADY L Ot M54.6 PAIN IN THORACIC SPINE 10/29/2018 COSENS DO, KADY L Ot R59.0 LOCALIZED ENLARGED LYMPH NODES 11/03/2018 COSENS DO, KADY L Ot 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 11/03/2018 COSENS DO, KADY L Ot I25.2 OLD MYOCARDIAL INFARCTION 11/03/2018 COSENS DO, KADY L Ot I71.2 THORACIC AORTIC ANEURYSM, WITHOUT RUPTUR 11/03/2018 COSENS DO, KADY L Ot J01.00 ACUTE MAXILLARY SINUSITIS, UNSPECIFIED 11/03/2018 COSENS DO, KADY L Ot K25.9 GASTRIC ULCER, UNSP ACUTE OR CHRONIC, 11/03/2018 COSENS DO, KADY L Ot K44.9 DIAPHRAGMATIC HERNIA WITHOUT OBSTRUCTION 11/03/2018 COSENS DO, KADY L Ot M54.6 PAIN IN THORACIC SPINE 11/03/2018 COSENS DO, KADY L Ot R59.0 LOCALIZED ENLARGED LYMPH NODES 11/13/2018 CALVIN GARCIA, JESICA Coto Ot M47.812 SPONDYLOSIS W/O MYELOPATHY OR RADICULOPA 11/24/2018 ROQUE ECHAVARRAI ELEMENTARY SUBSTITUTE TEACHER Ot R26.81 UNSTEADINESS ON FEET 11/26/2018 ROQUE ECHAVARRIA ELEMENTARY SUBSTITUTE TEACHER Ot M47.812 SPONDYLOSIS W/O MYELOPATHY OR RADICULOPA 11/26/2018 ROQUE ECHAVARRIA ELEMENTARY SUBSTITUTE TEACHER Ot 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, [facility] 12/07/2018 CALVIN GARCIA, JESICA Coto Ot M47.812 SPONDYLOSIS W/O MYELOPATHY OR RADICULOPA 12/08/2018 CALVIN GARCIA, JESICA Coto Ot M47.812 SPONDYLOSIS W/O MYELOPATHY OR RADICULOPA 12/16/2018 ROQUE ECHAVARRIA ELEMENTARY SUBSTITUTE TEACHER Ot M47.812 SPONDYLOSIS W/O MYELOPATHY OR RADICULOPA 12/16/2018 ROQUE ECHAVARRIA ELEMENTARY SUBSTITUTE TEACHER Ot 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 Results Test [...] Automated erythrocyte mean corpuscular hemoglobin concentration measurement (mass/volume) 37 g/dL 32-36 Automated erythrocyte distribution width ratio 13.1 % 10.0- 14.5 Automated blood platelet count (count/volume) 475 10*3/uL [...] Blood monocytes automated count (number/volume) 0.9 10*3 0.0- 1.0 Automated eosinophil count 0.0 10*3/uL 0.0-0.3 Automated [...] Serum or plasma aspartate aminotransferase measurement (enzymatic activity/volume) 35 U/L 5-34 Serum or plasma alanine aminotransferase measurement (enzymatic activity/volume) 41 U/L 0-55 Serum or plasma protein measurement (mass/volume) 9.0 g/dL 6.4-8.2 Serum or plasma albumin measurement (mass/volume) 4.8 g/dL 3.2-4.5 Magnesium - 12/14/17 17:30 Magnesium 1.7 mg/dL 1.8-2.4 Serum or plasma C reactive protein measurement (mass/volume) - 12/14/17 17:30 Serum or plasma C reactive protein measurement (mass/volume) 2.46 mg/dL 0.00-0.50 Complete urinalysis with reflex to culture - 12/14/17 17:45 Urine color determination YELLOW NRG Urine clarity determination SLIGHTLY CLOUDY NRG Urine pH measurement by test strip 6 5-9 Specific gravity of urine by test strip 1.025 1.016-1.022 Urine protein assay by test strip, semi-quantitative [...] sediment leukocyte count by microscopy (number/high power field) [HPF] NRG Bacteria detection in urine sediment [...] culture - 12/14/17 17:45 Bacterial urine culture [id number] NRG COLONY COUNT <10,000 NRG FTX;REPORTABLE SENSITIVITY REPORTED 12/17/17 7:15 NRG FREE TEXT ENTRY 2 PLUS, NRG FREE TEXT ENTRY 3 MIXED GRAM POSITIVES <10,000/ML NR Bacterial susceptibility panel - 12/14/17 17:45 Gentamicin susceptibility test by minimum inhibitory concentration S NRG Vancomycin susceptibility test by minimum inhibitory concentration 2 NRG Levofloxacin susceptibility test by minimum inhibitory concentration 0.5 NRG Tetracycline susceptibility test by minimum inhibitory concentration >= NRG Ampicillin susceptibility test by minimum inhibitory concentration <= NRG Nitrofurantoin susceptibility test by minimum inhibitory concentration <= NRG Linezolid susceptibility test by minimum inhibitory concentration 2 NR Bacterial susceptibility panel - 12/14/17 17:45 Gentamicin susceptibility test by minimum inhibitory concentration <= NRG Trimethoprim/sulfamethoxazole susceptibility test by minimum inhibitoryconcentration S NRG Ampicillin susceptibility test by minimum inhibitory concentration 8 NRG Tobramycin susceptibility test by minimum inhibitory concentration <= NRG Cefazolin susceptibility test by minimum inhibitory concentration <= NRG Ceftriaxone susceptibility test by minimum inhibitory concentration <= NRG Ampicillin/sulbactam susceptibility test by minimum inhibitory concentration S NRG Piperacillin/tazobactam susceptibility test by minimum inhibitory concentration S NRG Ciprofloxacin susceptibility test by minimum inhibitory concentration >= NRG Meropenem susceptibility test by minimum inhibitory concentration <= NRG Nitrofurantoin susceptibility test by minimum inhibitory concentration <= NRG Aztreonam susceptibility test by minimum inhibitory concentration <= NRG Extended spectrum beta lactamase (ESBL) producing bacteria susceptibility test by minimum inhibitory concentration - NR Blood lactic acid measurement (moles/volume) - 12/14/17 18:28 Blood lactic acid measurement (moles/volume) 2.37 mmol/L 0.50- 2.00 Bacterial blood culture - 12/14/17 18:28 Bacterial blood culture NG NRG Bacterial blood culture - 12/14/17 18:55 Bacterial blood culture NG NRG Serum or plasma lactate measurement (moles/volume) - 12/14/17 20:40 Serum or plasma lactate measurement (moles/volume) 1.47 mmol/L 0.50-2.00 Capillary blood glucose measurement by glucometer (mass/volume) - 12/14/17 20:43 Capillary blood glucose measurement by glucometer (mass/volume) 130 mg/dL 70-110 Capillary blood glucose measurement by glucometer (mass/volume) - 12/15/17 05:37 Capillary blood glucose measurement by glucometer (mass/volume) [...] Automated erythrocyte mean corpuscular hemoglobin concentration measurement (mass/volume) 37 g/dL 32-36 Automated erythrocyte distribution width ratio 12.7 % 10.0- 14.5 Automated blood platelet count (count/volume) 376 10*3/uL [...] Blood monocytes automated count (number/volume) 1.2 10*3 0.0- 1.0 Automated eosinophil count 0.1 10*3/uL 0.0-0.3 Automated [...] Serum or plasma aspartate aminotransferase measurement (enzymatic activity/volume) 27 U/L 5-34 Serum or plasma alanine aminotransferase measurement (enzymatic activity/volume) 28 U/L 0-55 Serum or plasma protein measurement (mass/volume) 6.8 g/dL 6.4-8.2 Serum or plasma albumin measurement (mass/volume) 3.7 g/dL 3.2-4.5 Capillary blood glucose measurement by glucometer (mass/volume) - 12/15/17 10:06 Capillary blood glucose measurement by glucometer (mass/volume) 109 mg/dL 70-110 Capillary blood glucose measurement by glucometer (mass/volume) - 12/15/17 17:21 Capillary blood glucose measurement by glucometer (mass/volume) 122 mg/dL 70-110 Capillary blood glucose measurement by glucometer (mass/volume) - 12/15/17 20:11 Capillary blood glucose measurement by glucometer (mass/volume) 107 mg/dL 70-110 Capillary blood glucose measurement by glucometer (mass/volume) - 12/16/17 05:37 Capillary blood glucose measurement by glucometer (mass/volume) [...] Automated erythrocyte mean corpuscular hemoglobin concentration measurement (mass/volume) 36 g/dL 32-36 Automated erythrocyte distribution width ratio 13.3 % 10.0- 14.5 Automated blood platelet count (count/volume) 334 10*3/uL [...] Serum or plasma aspartate aminotransferase measurement (enzymatic activity/volume) 27 U/L 5-34 Serum or plasma alanine aminotransferase measurement (enzymatic activity/volume) 24 U/L 0-55 Serum or plasma protein measurement (mass/volume) 5.8 g/dL 6.4-8.2 Serum or plasma albumin measurement (mass/volume) 3.3 g/dL 3.2-4.5 Capillary blood glucose measurement by glucometer (mass/volume) - 12/16/17 09:41 Capillary blood glucose measurement by glucometer (mass/volume) 98 mg/dL 70-110 Capillary blood glucose measurement by glucometer (mass/volume) - 12/16/17 17:10 Capillary blood glucose measurement by glucometer (mass/volume) 94 mg/dL 70-110 Capillary blood glucose measurement by glucometer (mass/volume) - 12/16/17 20:46 Capillary blood glucose measurement by glucometer (mass/volume) 99 mg/dL 70-110 Capillary blood glucose measurement by glucometer (mass/volume) - 12/17/17 05:15 Capillary blood glucose measurement by glucometer (mass/volume) [...] Automated erythrocyte mean corpuscular hemoglobin concentration measurement (mass/volume) 36 g/dL 32-36 Automated erythrocyte distribution width ratio 13.1 % 10.0- 14.5 Automated blood platelet count (count/volume) 369 10*3/uL 130-400 Automated blood platelet mean volume measurement 8.6 [foz_us] 7.4-10.4 Comprehensive metabolic panel - 02/21/18 05:22 Serum or plasma sodium measurement (moles/volume) [...] Serum or plasma aspartate aminotransferase measurement (enzymatic activity/volume) 34 U/L 5-34 Serum or plasma alanine aminotransferase measurement (enzymatic activity/volume) 29 U/L 0-55 Serum or plasma protein measurement (mass/volume) 6.6 g/dL 6.4-8.2 Serum or plasma albumin measurement (mass/volume) 3.6 g/dL 3.2-4.5 Capillary blood glucose measurement by glucometer (mass/volume) - 12/17/17 09:38 Capillary blood glucose measurement by glucometer (mass/volume) 118 mg/dL 70-110 Capillary blood glucose measurement by glucometer (mass/volume) - 12/17/17 14:09 Capillary blood glucose measurement by glucometer (mass/volume) 106 mg/dL 70-110 Capillary blood glucose measurement by glucometer (mass/volume) - 12/17/17 16:17 Capillary blood glucose measurement by glucometer (mass/volume) 102 mg/dL 70-110 Capillary blood glucose measurement by glucometer (mass/volume) - 12/17/17 20:25 Capillary blood glucose measurement by glucometer (mass/volume) 104 mg/dL 70-110 Capillary blood glucose measurement by glucometer (mass/volume) - 12/18/17 05:19 Capillary blood glucose measurement by glucometer (mass/volume) 118 mg/dL 70-110 Capillary blood glucose measurement by glucometer (mass/volume) - 12/18/17 10:50 Capillary blood glucose measurement by glucometer (mass/volume) 122 mg/dL 70-110 Comprehensive metabolic panel - 10/08/18 17:05 Serum or plasma sodium measurement (moles/volume) 140 mmol/L 135-145 Serum or plasma potassium measurement (moles/volume) 3.9 mmol/L 3.6-5.0 Serum or plasma chloride measurement (moles/volume) 106 mmol/L 98-107 Carbon dioxide 23 mmol/L 21-32 Serum or plasma anion gap determination (moles/volume) 11 mmol/L 5-14 Serum or plasma urea nitrogen measurement (mass/volume) 13 mg/dL 7-18 Serum or plasma creatinine measurement (mass/volume) 1.02 mg/dL 0.60-1.30 Serum or plasma urea nitrogen/creatinine mass ratio 13 NRG Serum or plasma creatinine measurement with calculation of estimated glomerular filtration rate 52 NRG Serum or plasma glucose measurement (mass/volume) 90 mg/dL 70-105 Serum or plasma calcium measurement (mass/volume) 10.0 mg/dL 8.5-10.1 Serum or plasma total bilirubin measurement (mass/volume) 0.3 mg/dL 0.1-1.0 Serum or plasma alkaline phosphatase measurement (enzymatic activity/volume) 53 U/L 40-136 Serum or plasma aspartate aminotransferase measurement (enzymatic activity/volume) 29 U/L 5-34 Serum or plasma alanine aminotransferase measurement (enzymatic activity/volume) 35 U/L 0-55 Serum or plasma protein measurement (mass/volume) 7.6 g/dL 6.4-8.2 Serum or plasma albumin measurement (mass/volume) 4.2 g/dL 3.2-4.5 CALCIUM CORRECTED 9.8 mg/dL 8.5-10.1 Comprehensive metabolic panel - 11/26/18 13:05 Serum or plasma sodium measurement (moles/volume) 137 mmol/L 135-145 Serum or plasma potassium measurement (moles/volume) 4.2 mmol/L 3.6-5.0 Serum or plasma chloride measurement (moles/volume) 103 mmol/L 98-107 Carbon dioxide 23 mmol/L 21-32 Serum or plasma anion gap determination (moles/volume) 11 mmol/L 5-14 Serum or plasma urea nitrogen measurement (mass/volume) 11 mg/dL 7-18 Serum or plasma creatinine measurement (mass/volume) 1.00 mg/dL 0.60-1.30 Serum or plasma urea nitrogen/creatinine mass ratio 11 NRG Serum or plasma creatinine measurement with calculation of estimated glomerular filtration rate 53 NRG Serum or plasma glucose measurement (mass/volume) 121 mg/dL 70-105 Serum or plasma calcium measurement (mass/volume) 10.0 mg/dL 8.5-10.1 Serum or plasma total bilirubin measurement (mass/volume) 0.4 mg/dL 0.1-1.0 Serum or plasma alkaline phosphatase measurement (enzymatic activity/volume) 69 U/L 40-136 Serum or plasma aspartate aminotransferase measurement (enzymatic activity/volume) 37 U/L 5-34 Serum or plasma alanine aminotransferase measurement (enzymatic activity/volume) 38 U/L 0-55 Serum or plasma protein measurement (mass/volume) 7.8 g/dL 6.4-8.2 Serum or plasma albumin measurement (mass/volume) 4.2 g/dL 3.2-4.5 CALCIUM CORRECTED 9.8 mg/dL 8.5-10.1 Encounters ACCT No. Visit Date/Time Discharge Status Pt. Type Provider Facility Loc./Unit Complaint [id number] 12/03/2018 11:31:00 12/28/2018 08:46:00 DIS Outpatient ROQUE ECHAVARRIA APRN [facility] REHAB UNSTEADY GAIT [id number] 11/26/2018 12:56:00 11/26/2018 23:59:59 CLS Outpatient ROQUE ECHAVARRIA APRN [facility] RAD NECK PAIN [id number] 11/12/2018 13:07:00 11/12/2018 23:59:59 CLS Outpatient JESICA SIMPSON MD [facility] RAD NECK PAIN [id number] 10/08/2018 16:57:00 10/08/2018 23:59:59 CLS Outpatient KADY GIPSON DO [facility] RAD WIDENED MEDIASTINUM ON CHEST X-RAY [id number] 12/28/2017 17:31:00 12/28/2017 19:28:00 DIS Emergency CJ FIGUEROA [facility] ER R WRIST SWELLING [id number] 12/14/2017 19:02:00 12/18/2017 13:48:00 DIS Inpatient SERAFIN LU MD [facility] 4TH UTI, DIARRHEA, ACUTE RENAL FAILURE, HYPONATREMIA [id number] 07/23/2017 20:02:00 07/23/2017 23:00:00 DIS Emergency TANVI DODD MD [facility] ER HIGH BP;EYE PAIN [id number] 06/25/2017 13:26:00 06/25/2017 23:59:59 CLS Preadmit SERAFIN LU MD [facility] RAD ATAXIA,LOWER LEG WEAKNESS [id number] 03/26/2017 11:00:00 03/26/2017 23:59:59 CLS Preadmit MIGUEL ALLRED [facility] RAD MEMORY LOSS [id number] 03/26/2017 10:35:00 03/26/2017 23:59:59 CLS Outpatient MIGUEL ALLRED [facility] RAD Z12.31 BREAST CA SCREENING, MEMORY LOSS [id number] 02/22/2015 11:34:00 02/22/2015 23:59:59 CLS Outpatient NEIL SILVERMAN DO [facility] RAD SCREENING [id number] 09/08/2014 07:23:00 09/08/2014 11:05:00 DIS Outpatient SANJAY BARAJAS DO [facility] SDC CYST ON CHEST [id number] 09/06/2014 12:11:00 09/06/2014 23:59:59 CLS Outpatient SANJAY BARAJAS DO [facility] PREOP CYST ON CHEST [id number] 02/21/2014 09:37:00 02/21/2014 23:59:59 CLS Outpatient NEIL SILVERMAN DO [facility] RAD SCREENING [id number] 03/26/2017 10:33:00 Document Registration [id number] 12/02/2012 14:56:00 Document Registration [id number] 04/12/2012 11:25:00 Document Registration [id number] 04/01/2012 00:00:00 Document Registration [id number] 01/06/2012 10:57:00 Document Registration [id number] 12/11/2011 11:46:00 Document Registration [id number] 10/10/2011 08:15:00 Document Registration [email or web address] 02/23/2015 04:27:24 ACT Document Registration
== END 2019-03-29 17:50 | disposition home or self-care (01) ==
LOC: EDUNIT# 13:24 → ER 13:24
DX: I65.22 Occlusion and stenosis of left carotid artery (principal); R55 Syncope and collapse; R29.6 Repeated falls; I25.10 Atherosclerotic heart disease of native coronary artery without angina pectoris; F03.90 Unspecified dementia, unspecified severity, without behavioral disturbance, psychotic disturbance, mood disturbance, and anxiety; K58.9 Irritable bowel syndrome, unspecified; E11.9 Type 2 diabetes mellitus without complications; Z88.2 Allergy status to sulfonamides; Z79.82 Long term (current) use of aspirin; Z79.4 Long term (current) use of insulin; Z87.891 Personal history of nicotine dependence; Z90.710 Acquired absence of both cervix and uterus; Z90.89 Acquired absence of other organs
CPT/HCPCS: 36415; 71046; 80053; 81000; 83690; 83735; 85025; 93005; 93041; 93880

== ENCOUNTER 2019-05-06 18:27 | Emergency (ER) | payer MEDICARE, OTHER ==
[~2019-05-06] VITALS: Ht 157.5 cm; Wt 81.6 kg
--- NOTE | 2019-05-06 18:41 | ED Fall/Injury ---
General Chief Complaint: Trauma-Non Activation Stated Complaint: FALL Source: patient Exam Limitations: no limitations History of Present Illness Date Seen by Provider: May 06, 2019 Time Seen by Provider: 19:17 Initial Comments To ER per EMS with reports of an unwitnessed fall at [facility]. Ecchymosis inferior to the left eye, complained of some left hip pain initially but was ambulatory at the long-term. is demented. Recently had carotid stenting placed Occurred: just prior to arrival Severity: moderate Injuries/Pain Location: head, face Loss of Consciousness: no loss of consciousness Associated Symptoms (Fall): Neck Pain Allergies and Home Medications Allergies Uncoded Allergies: SULFA (Allergy, Severe, 04/12/10) Home Medications Alprazolam 0.25 Mg Tablet, 0.125 MG PO BID PRN for ANXIETY Prescribed by: SERAFIN LU on 12/18/17914 Aspirin 81 Mg Tablet.dr, 81 MG PO DAILY, (Reported) Cholestyramine/Aspartame 4 Gm Powd.pack, 4 GM PO BID Prescribed by: SERAFIN LU on 12/18/17914 Diltiazem HCl 180 Mg Cap.er.24h, 180 MG PO DAILY, (Reported) Furosemide 40 Mg Tablet, 40 MG PO DAILY PRN for SWELLING, (Reported) Hydrocodone Bit/Acetaminophen 1 Tab Tab, 1 EACH PO Q6H PRN for PAIN Prescribed by: CJ FIGUEROA on 12/28/171917 Insulin Glargine,Hum.rec.anlog 100 Unit/1 Ml Insuln.pen, 10 UNITS SC HS, (Reported) L. Acidophilus/Bulgaricus 1 Each Tablet, 1 TAB.CHEW PO AC Prescribed by: SERAFIN LU on 12/18/17914 Lactobacillus Acidophilus 1 Each Capsule, 1 CAP PO HS, (Reported) Memantine HCl 10 Mg Tablet, 10 MG PO BID, (Reported) Metronidazole 500 Mg Tablet, 500 MG PO TID Prescribed by: SERAFIN LU on 12/18/17914 Naproxen Na-Diphenhydramin HCl 1 Each Tablet, 1 TAB PO HS PRN for SLEEP, (Reported) Nitrofurantoin Monohyd/M-Cryst 100 Mg Capsule, 100 MG PO BID Prescribed by: SERAFIN LU on 12/18/17914 Ropinirole HCl 0.25 Mg Tablet, 0.25 MG PO BID, (Reported) Sucralfate 1 Gm Tablet, 1 GM PO ACHS Prescribed by: SERAFIN LU on 12/18/17 0915 Tramadol HCl 50 Mg Tablet, 50 MG PO TID PRN for PAIN-MODERATE, (Reported) [Acid Relief 360] , 1 CAP PO BID, (Reported) [Prevagen] , 1 TAB.CHEW PO HS, (Reported) Patient Home Medication List Home Medication List Reviewed: Yes Review of Systems Review of Systems Constitutional: see HPI Eyes: No Symptoms Reported Ears, Nose, Mouth, Throat: see HPI Respiratory: no symptoms reported Cardiovascular: no symptoms reported Genitourinary: no symptoms reported Musculoskeletal: no symptoms reported Skin: no symptoms reported Psychiatric/Neurological: No Symptoms Reported Past Sprsiul-Zcxxqu-Ehsxaf Hx Patient Social History Former Smoker, Quit: Oct 27, 1976 2nd Hand Smoke Exposure: No Recent Foreign Travel: No Contact w/Someone Who Travel: No Recent Hopitalizations: No Immunizations Up To Date Date of Pneumonia Vaccine: Sep 08, 2012 Date of Influenza Vaccine: Jul 23, 2017 Seasonal Allergies Seasonal Allergies: No Past Medical History Surgeries: Yes (BILATERAL KNEE SCOPE, BREAST BX, COLONOSCOPY) Gallbladder, Hysterectomy, Orthopedic, Tonsillectomy Respiratory: No Cardiac: Yes Coronary Artery Disease Neurological: Yes (CURRENT MEMORY PROBLEMS (NEURO EVAL IN JUL 2017)) Dementia Genitourinary: No Gastrointestinal: Yes Irritable Bowel Musculoskeletal: No Endocrine: Yes Diabetes, Non-Insulin dep HEENT: Yes Cancer: No Psychosocial: No Integumentary: No Blood Disorders: No Family Medical History Patient reports no known family medical history. Hypertension Physical Exam Vital Signs Vital Signs - First Documented 05/06/19 18:27 Temp 98.8 Pulse 77 Resp 18 B/P (MAP) 179/81 (113) Pulse Ox 97 O2 Delivery Room Air Capillary Refill : Height, Weight, BMI Height: 5'5.00" Weight: 180lbs. 0.0oz. 81.100817ms; 26.9 BMI Method:Stated General Appearance: WD/WN, no apparent distress HEENT: PERRL/EOMI, normal ENT inspection, TMs normal, pharynx normal, other (extraocular muscles are intact. There is a left infraorbital ecchymosis and firmness that is well circumscribed. No hyphema, no subconjunctival hemorrhage) Neck: non-tender, full range of motion Respiratory: no respiratory distress, no accessory muscle use Gastrointestinal: normal bowel sounds, non tender, soft Neurologic/Psychiatric: alert, normal mood/affect Skin: normal color, warm/dry Gume Coma Score Best Eye Response: (4) Open Spontaneously Best Verbal Response: (4) Confused Conversation Best Motor Response: (6) Obeys Commands Gume Total: 14 Progress/Results/Core Measures Results/Orders My Orders Orders - DEVYN GREER APRN Pelvis (05/06/19 18:37) Ct Head/Face/Cervical Wo (05/06/19 18:37) Vital Signs/I&O 05/06/19 18:27 Temp 98.8 Pulse 77 Resp 18 B/P (MAP) 179/81 (113) Pulse Ox 97 O2 Delivery Room Air Departure Communication (Admissions) Cervical collar removed in 1920. Discharge back to long-term. Impression Primary Impression: Facial contusion Qualified Codes: S00.83XA - Contusion of other part of head, initial encounter Additional Impression: Fall Qualified Codes: W19.XXXA - Unspecified fall, initial encounter Disposition: 01 HOME, SELF-CARE Condition: Stable Departure-Patient Inst. Decision time for Depature: 19:20 Referrals: JESICA SIMPSON MD (PCP/Family) Primary Care Physician Patient Instructions: Contusion (DC) Add. Discharge Instructions: 1. Ice pack to the area 30 minutes every 1-2 hours. Tylenol/ibuprofen for pain. Return to ER for any concerns. All discharge instructions reviewed with patient and/or family. Voiced understanding. DEVYN GREER APRN May 06, 2019 18:41
--- NOTE | 2019-05-06 19:15 | Diagnostic Imaging Report ---
PROCEDURE: CT head, face, and cervical spine without contrast. TECHNIQUE: Multiple contiguous axial images were obtained through the head, neck, and facial bones without the use of intravenous contrast. Sagittal and coronal reformations through the cervical spine and facial bones were also performed. Auto Exposure Controls were utilized during the CT exam to meet ALARA standards for radiation dose reduction. INDICATION: Fall. Bruising around the left eye. FINDINGS: CT of the head demonstrates age-related global volume loss. There are no CT findings of acute intracranial hemorrhage. There is no intracranial mass effect or shift. There is no hydrocephalus. There is no abnormal extra-axial fluid collection. There is no territorial loss of means-white differentiation or abnormal low density within the basal ganglia or within the bryon. There is no calvarial fracture. CT of the face demonstrates a large soft tissue hematoma overlying the left malar region as well as left periorbital preseptal edema or hemorrhage. There is no post-septal involvement. The bony orbit appears intact. The intraorbital contents are unremarkable. There is no evidence of a fracture of the zygomatic arches. There is no nasal bone fracture. There is polypoidal mucosal thickening in the left maxillary sinus but no air-fluid levels. There is no maxillary fracture. The pterygoids are unremarkable. The temporomandibular joints are appropriately located. There is no mandibular fracture evident. Cervical spine demonstrates multilevel cervical degenerative disc disease and facet arthropathy. There is maintenance of normal alignment of the craniocervical junction. There is a normal relationship of the lateral masses of C1 and C2. The facets are normally aligned. There is no facet joint or disc space widening. There are multilevel degenerative endplate changes, most advanced at C5-C6. Vertebral body heights are maintained without evidence of an acute cervical spine fracture. Canal and foraminal stenosis is most advanced at C5-C6. There is wrubxuzr-fu-cvzfgh narrowing of the central canal and severe narrowing of the right neural foramen. The lung apices appear clear. The soft tissues of the neck demonstrate no acute process. There is a left carotid stent. IMPRESSION: 1. Age-related global volume loss without CT evidence of an acute intracranial abnormality. 2. Large left malar hematoma with left pre-septal orbital soft tissue swelling and/or hemorrhage. There is no intraorbital abnormality or evidence of an orbital fracture. 3. No acute facial fracture or blood within the sinuses. 4. Advanced degenerative features within the cervical spine, in particular at C5-C6. There are, however, no findings of an acute cervical spine fracture or traumatic malalignment. Dictated by: Dictated on workstation # [id number]
--- NOTE | 2019-05-06 19:19 | Diagnostic Imaging Report ---
INDICATION: Left-sided pelvic pain. Fall. FINDINGS: There is no evidence on this single view to suggest hip dislocation. The proximal femurs demonstrate no cortical disruption, and the morphology of the femoral heads appears appropriate. Pelvic ring appears intact without diastasis of the SI joints or pubic symphysis. There are moderate osteoarthritic changes within both hips. There are degenerative endplate changes and facet arthropathy within the lower lumbar spine. IMPRESSION: 1. Lumbar spine and hip arthritic changes without evidence of dislocation or acute fracture. If the patient has continued symptomatology or inability to bear weight, consider CT imaging. Dictated by: Dictated on workstation # [id number]
[2019-05-06 19:35] VITALS: BP 186/83
== END 2019-05-06 19:35 | disposition home or self-care (01) ==
LOC: EDUNIT# 18:27 → ER 18:28
DX: S05.12XA Contusion of eyeball and orbital tissues, left eye, initial encounter (principal); I25.10 Atherosclerotic heart disease of native coronary artery without angina pectoris; F03.90 Unspecified dementia, unspecified severity, without behavioral disturbance, psychotic disturbance, mood disturbance, and anxiety; K58.9 Irritable bowel syndrome, unspecified; E11.9 Type 2 diabetes mellitus without complications; Z88.2 Allergy status to sulfonamides; Z79.82 Long term (current) use of aspirin; Z90.710 Acquired absence of both cervix and uterus; Z90.89 Acquired absence of other organs; Z82.49 Family history of ischemic heart disease and other diseases of the circulatory system; W19.XXXA Unspecified fall, initial encounter; Y92.129 Unspecified place in nursing home as the place of occurrence of the external cause
CPT/HCPCS: 70450; 70486; 72125; 72170

== ENCOUNTER 2019-07-31 14:02 | Emergency (ER) | payer MEDICARE, OTHER ==
[~2019-07-31] VITALS: Ht 157.4 cm; Wt 68.6 kg
[2019-07-31 14:30] LABS: BASOPHILS # (AUTO) 0.1 10^3/uL (0.0-0.1); BASOPHILS % (AUTO) 0 % (0-10); EOSINOPHILS # (AUTO) 0.2 10^3/uL (0.0-0.3); EOSINOPHILS % (AUTO) 2 % (0-10); HEMATOCRIT 39 % (35-52); HEMOGLOBIN 13.4 G/DL (11.5-16.0); LYMPHOCYTES # (AUTO) 2.8 X 10^3 (1.0-4.0); LYMPHOCYTES % (AUTO) 25 % (12-44); MEAN CORPUSCULAR HEMOGLOBIN 31 PG (25-34); MEAN CORPUSCULAR HGB CONC 34 G/DL (32-36); MEAN CORPUSCULAR VOLUME 91 FL (80-99); MEAN PLATELET VOLUME 9.3 FL (7.4-10.4); MONOCYTES # (AUTO) 0.8 X 10^3 (0.0-1.0); MONOCYTES % (AUTO) 7 % (0-12); NEUTROPHILS # (AUTO) 7.7 X 10^3 (1.8-7.8); NEUTROPHILS % (AUTO) 67 % (42-75); PLATELET COUNT 342 10^3/uL (130-400); RED CELL DISTRIBUTION WIDTH 13.1 % (10.0-14.5); WHITE BLOOD COUNT 11.5 10^3/uL (4.3-11.0)
[2019-07-31 14:44] LABS: ALANINE AMINOTRANSFERASE 22 U/L (0-55); ALBUMIN 4.3 GM/DL (3.2-4.5); ALKALINE PHOSPHATASE 98 U/L (40-136); BILIRUBIN,TOTAL 0.7 MG/DL (0.1-1.0); BUN/CREATININE RATIO 14; CARBON DIOXIDE 20 MMOL/L (21-32); CHLORIDE 108 MMOL/L (98-107); CREATININE SERUM 0.96 MG/DL (0.60-1.30); GFR ESTIMATED 56; GLUCOSE 108 MG/DL (70-105); LIPASE 118 U/L (8-78); POTASSIUM 3.7 MMOL/L (3.6-5.0); SODIUM 142 MMOL/L (135-145); TOTAL PROTEIN 7.5 GM/DL (6.4-8.2)
--- NOTE | 2019-07-31 14:49 | NUR ---
DR WHATLEY TAKLED WITH HOSPICE NURSE SHE REPORTS HE HAD FALL THIS WEEK . UNSURE IF TOOK HER TO THE DR. MORPHINE 10MG PO GIVEN BY . HOSPICE HAS TALKED WITH ABOUT CODE STATUES HAS HAD NOT GOT ANYWHRE WITH IT.
[2019-07-31] MEDS ORDERED: NS IV 1000 ML 1,000 ML IV ONE (14:53)
[2019-07-31] MEDS ORDERED: HOLD METFORMIN - RECEIVED CONTRAST 20 ML VIAL IV SCH (15:00)
[2019-07-31] MEDS ORDERED: NS 100 ML (IVPB) BAG IV ONE (15:00)
[2019-07-31] MEDS ORDERED: IOHEXOL 350 MG/ML 100 ML (OMNIPAQUE 350) VIAL IV ONE (15:00)
--- NOTE | 2019-07-31 15:45 | Diagnostic Imaging Report ---
PROCEDURE: CT chest, abdomen, and pelvis with contrast. TECHNIQUE: Multiple contiguous axial images were obtained through the chest, abdomen, and pelvis after the administration of intravenous contrast. Auto Exposure Controls were utilized during the CT exam to meet ALARA standards for radiation dose reduction. INDICATION: Chest, abdominal and pelvic pain after fall four days ago. COMPARISON: Chest CT, 10/08/[address] of the abdomen and pelvis, 12/15/2017. DISCUSSION: CT chest: Mild emphysema is noted. No focal consolidation or suspicious pulmonary lesion. No bronchiectasis. Normal heart size. No pleural or pericardial fluid. No pathologically enlarged lymph nodes are identified. The thoracic aorta is normal in caliber and configuration. Pulmonary arteries are not dilated. Ulcerative plaque within the posterior aspect of the descending thoracic aorta is stable. No acute osseous abnormality. CT abdomen/pelvis: The liver, pancreas, spleen and adrenal glands are unremarkable. Small hiatal hernia, stable. The gallbladder is surgically absent. Mild cortical atrophy of the right kidney is noted, chronic. No hydronephrosis or renal mass. The aorta is normal in caliber and contains scattered atherosclerotic plaque. Urinary bladder is unremarkable. Uterus is surgically absent. The large and small bowel loops appear within normal limits. There is no ascites or pathologically enlarged lymph nodes identified. No acute osseous abnormality identified. Impression: No acute abnormality identified. Chronic changes as discussed. Dictated by: Dictated on workstation # [id number]
[2019-07-31 16:08] LABS: BILIRUBIN,URINE NEGATIVE (NEGATIVE); CLARITY,URINE CLEAR; COLOR,URINE YELLOW; GLUCOSE, URINE (UA) NEGATIVE (NEGATIVE); KETONES,URINE 1+ (NEGATIVE); LEUKOCYTE ESTERASE ,URINE 2+ (NEGATIVE); NITRITE,URINE NEGATIVE (NEGATIVE); PH,URINE 5 (5-9); PROTEIN,URINE 1+ (NEGATIVE); UROBILINOGEN,URINE NORMAL (NORMAL)
[2019-07-31 16:15] LABS: BACTERIA,URINE TRACE /HPF; WBC,URINE 0-2 /HPF
--- NOTE | 2019-07-31 16:29 | ED General ---
General Chief Complaint: General Problems/Pain Stated Complaint: CHEST PAIN Nursing Triage Note: TO ED PER EMS C/O OF ABD PAIN PATIENT IS ON HOSPICE Nursing Sepsis Screen: No Definite Risk Source of Information: Patient, Family, Other (hospice nurse) Exam Limitations: No Limitations History of Present Illness Date Seen by Provider: Jul 31, 2019 Time Seen by Provider: 14:03 Initial Comments This 79-year-old woman with dementia who is on hospice for "senile degeneration" is brought to the emergency room via EMS initially for chief complaint of chest pain. EMS reports the pain actually seems to be more in her back. On my assessment pain seems to be in the right upper quadrant where she is tender. Patient is reportedly on hospice and received 10 mg of morphine twice today which did not resolve her pain. Her became concerned and requested she be taken to the emergency room. Patient also had a fall 2 days ago with no obvious injury at the time. Patient has had multiple falls recently and has had syncope. She also has history of carotid artery stenosis with carotid artery stenting performed in March of this year. She has not yet pursued further workup or evaluation of her dizziness or syncope as it may pertain to the carotid artery disease because she would need to cancel her hospice enrollment to pursue this aggressively. Patient is alert but pleasantly confused on arrival. Allergies and Home Medications Allergies Uncoded Allergies: SULFA (Allergy, Severe, 04/12/10) Home Medications Alprazolam 0.25 Mg Tablet, 0.125 MG PO BID PRN for ANXIETY Prescribed by: SERAFIN LU on 12/18/17914 Aspirin 81 Mg Tablet.dr, 81 MG PO DAILY, (Reported) Cholestyramine/Aspartame 4 Gm Powd.pack, 4 GM PO BID Prescribed by: SERAFIN LU on 12/18/17914 Diltiazem HCl 180 Mg Cap.er.24h, 180 MG PO DAILY, (Reported) Furosemide 40 Mg Tablet, 40 MG PO DAILY PRN for SWELLING, (Reported) Hydrocodone Bit/Acetaminophen 1 Tab Tab, 1 EACH PO Q6H PRN for PAIN Prescribed by: CJ FIGUEROA on 12/28/171917 Insulin Glargine,Hum.rec.anlog 100 Unit/1 Ml Insuln.pen, 10 UNITS SC HS, (Reported) L. Acidophilus/Bulgaricus 1 Each Tablet, 1 TAB.CHEW PO AC Prescribed by: SERAFIN LU on 12/18/17914 Lactobacillus Acidophilus 1 Each Capsule, 1 CAP PO HS, (Reported) Memantine HCl 10 Mg Tablet, 10 MG PO BID, (Reported) Metronidazole 500 Mg Tablet, 500 MG PO TID Prescribed by: SERAFIN LU on 12/18/17914 Naproxen Na-Diphenhydramin HCl 1 Each Tablet, 1 TAB PO HS PRN for SLEEP, (Reported) Nitrofurantoin Monohyd/M-Cryst 100 Mg Capsule, 100 MG PO BID Prescribed by: SERAFIN LU on 12/18/17914 Ropinirole HCl 0.25 Mg Tablet, 0.25 MG PO BID, (Reported) Sucralfate 1 Gm Tablet, 1 GM PO ACHS Prescribed by: SERAFIN LU on 12/18/17914 Tramadol HCl 50 Mg Tablet, 50 MG PO TID PRN for PAIN-MODERATE, (Reported) [Acid Relief 360] , 1 CAP PO BID, (Reported) [Prevagen] , 1 TAB.CHEW PO HS, (Reported) Patient Home Medication List Home Medication List Reviewed: Yes Review of Systems Review of Systems Constitutional: no symptoms reported EENTM: no symptoms reported Respiratory: no symptoms reported Cardiovascular: see HPI Gastrointestinal: see HPI Genitourinary: no symptoms reported : No Musculoskeletal: see HPI Skin: no symptoms reported Psychiatric/Neurological: See HPI Hematologic/Lymphatic: No Symptoms Reported Immunological/Allergic: no symptoms reported Past Sfqwuuf-Enrhol-Hhqduv Hx Patient Social History Alcohol Use: Denies Use Recreational Drug Use: No Smoking Status: Never a Smoker Former Smoker, Quit: Oct 27, 1976 2nd Hand Smoke Exposure: No Recent Foreign Travel: No Contact w/Someone Who Travel: No Recent Infectious Disease Expo: No Recent Hopitalizations: No Immunizations Up To Date Date of Pneumonia Vaccine: Sep 08, 2012 Date of Influenza Vaccine: Jul 23, 2017 Seasonal Allergies Seasonal Allergies: No Past Medical History Surgeries: Yes (BILATERAL KNEE SCOPE, BREAST BX, COLONOSCOPY) Gallbladder, Hysterectomy, Orthopedic, Tonsillectomy, Vascular Surgery (carotid artery stenting) Respiratory: No Cardiac: Yes Coronary Artery Disease Neurological: Yes (CURRENT MEMORY PROBLEMS (NEURO EVAL IN JUL 2017)) Dementia Genitourinary: No Gastrointestinal: Yes Irritable Bowel Musculoskeletal: No Endocrine: Yes Diabetes, Non-Insulin dep HEENT: Yes Cancer: No Psychosocial: No Integumentary: No Blood Disorders: No Family Medical History Patient reports no known family medical history. Hypertension Physical Exam Vital Signs Vital Signs - First Documented 07/31/19 07/31/19 14:02 16:55 Temp 37.3 Pulse 67 Resp 18 B/P (MAP) 197/77 (117) Pulse Ox 98 Capillary Refill : Less Than 3 Seconds Height, Weight, BMI Height: 5'2.00" Weight: 180lbs. 0.0oz. 81.980844mn; 27.00 BMI Method:Stated General Appearance: WD/WN, Mild Distress HEENT: PERRL/EOMI, Normal ENT Inspection Neck: Normal Inspection Respiratory: Lungs Clear, Normal Breath Sounds, No Accessory Muscle Use, No Respiratory Distress Cardiovascular: Regular Rate, Rhythm, No Edema, No Murmur Gastrointestinal: Normal Bowel Sounds, Soft, Tenderness (right upper quadrant) Extremity: Normal Inspection, No Pedal Edema Neurologic/Psychiatric: Alert, No Motor/Sensory Deficits, Normal Mood/Affect, personal banking officer II-XII Norm as Tested, Other (pleasantly confused due to dementia) Skin: Normal Color, Warm/Dry Progress/Results/Core Measures Suspected Sepsis Recent Fever Within 48 Hours: No Infection Criteria Present: None New/Unexplained Altered Menta: No Sepsis Screen: No Definite Risk SIRS Temperature: Pulse: 67 Respiratory Rate: 18 Laboratory Tests 07/31/19 14:15: White Blood Count 11.5H Blood Pressure 197 /77 Mean: 117 Laboratory Tests 07/31/19 14:15: Creatinine 0.96, Platelet Count 342, Total Bilirubin 0.7 Results/Orders Lab Results Laboratory Tests Test 07/31/19 14:15 07/31/19 16:02 Range/Units White Blood Count 11.5 H 4.3-11.0 10^3/uL Red Blood Count 4.30 L 4.35-5.85 10^6/uL Hemoglobin 13.4 11.5-16.0 G/DL Hematocrit 39 35-52 % Mean Corpuscular Volume 91 80-99 FL Mean Corpuscular Hemoglobin 31 25-34 PG Mean Corpuscular Hemoglobin Concent 34 32-36 G/DL Red Cell Distribution Width 13.1 10.0-14.5 % Platelet Count 342 130-400 10^3/uL Mean Platelet Volume 9.3 7.4-10.4 FL Neutrophils (%) (Auto) 67 42-75 % Lymphocytes (%) (Auto) 25 12-44 % Monocytes (%) (Auto) 7 0-12 % Eosinophils (%) (Auto) 2 0-10 % Basophils (%) (Auto) 0 0-10 % Neutrophils # (Auto) 7.7 1.8-7.8 X 10^3 Lymphocytes # (Auto) 2.8 1.0-4.0 X 10^3 Monocytes # (Auto) 0.8 0.0-1.0 X 10^3 Eosinophils # (Auto) 0.2 0.0-0.3 10^3/uL Basophils # (Auto) 0.1 0.0-0.1 10^3/uL Sodium Level 142 135-145 MMOL/L Potassium Level 3.7 3.6-5.0 MMOL/L Chloride Level 108 H 98-107 MMOL/L Carbon Dioxide Level 20 L 21-32 MMOL/L Anion Gap 14 5-14 MMOL/L Blood Urea Nitrogen 13 7-18 MG/DL Creatinine 0.96 0.60-1.30 MG/DL Estimat Glomerular Filtration Rate 56 BUN/Creatinine Ratio 14 Glucose Level 108 H 70-105 MG/DL Calcium Level 10.0 8.5-10.1 MG/DL Corrected Calcium 9.8 8.5-10.1 MG/DL Total Bilirubin 0.7 0.1-1.0 MG/DL Aspartate Amino Transf (AST/SGOT) 34 5-34 U/L Alanine Aminotransferase (ALT/SGPT) 22 0-55 U/L Alkaline Phosphatase 98 40-136 U/L Troponin I < 0.028 <0.028 NG/ML Total Protein 7.5 6.4-8.2 GM/DL Albumin 4.3 3.2-4.5 GM/DL Lipase 118 H 8-78 U/L Urine Color YELLOW Urine Clarity CLEAR Urine pH 5 5-9 Urine Specific Section 1.010 L 1.016-1.022 Urine Protein 1+ H NEGATIVE Urine Glucose (UA) NEGATIVE NEGATIVE Urine Ketones 1+ H NEGATIVE Urine Nitrite NEGATIVE NEGATIVE Urine Bilirubin NEGATIVE NEGATIVE Urine Urobilinogen NORMAL NORMAL MG/DL Urine Leukocyte Esterase 2+ H NEGATIVE Urine RBC (Auto) NEGATIVE NEGATIVE Urine RBC NONE /HPF Urine WBC 0-2 /HPF Urine Squamous Epithelial Cells 2-5 /HPF Urine Crystals NONE /LPF Urine Bacteria TRACE /HPF Urine Casts NONE /LPF Urine Mucus NEGATIVE /LPF Urine Culture Indicated NO My Orders Orders - THOMAS SONG MD Cbc With Automated Diff (07/31/19 14:24) Comprehensive Metabolic Panel (07/31/19 14:24) Lipase (07/31/19 14:24) Troponin I (07/31/19 14:24) Ua Culture If Indicated (07/31/19 14:24) Ed Iv/Invasive Line Start (07/31/19 14:24) Ekg Tracing (07/31/19 14:24) Monitor-Rhythm Ecg Trace Only (07/31/19 14:24) Ct Chest/Abdomen/Pelvis W (07/31/19 14:53) Ns Iv 1000 Ml (Sodium Chloride 0.9%) (07/31/19 14:53) Iohexol Injection (Omnipaque 350 Mg/Ml 1 (07/31/19 15:00) Received Contrast (Hold Metformin- Contr (07/31/19 15:00) Ns (Ivpb) (Sodium Chloride 0.9% Ivpb Bag (07/31/19 15:00) Medications Given in ED Current Medications Medications Dose Ordered Sig/Tam Route Start Time Stop Time Status Last Admin Dose Admin Iohexol 100 ml ONCE ONCE IV 07/31/19 15:00 07/31/19 15:56 DC 07/31/19 15:27 100 ML Sodium Chloride 100 ml ONCE ONCE IV 07/31/19 15:00 07/31/19 15:56 DC 07/31/19 15:27 100 ML Vital Signs/I&O 07/31/19 07/31/19 14:02 16:55 Temp 37.3 Pulse 67 74 Resp 18 18 B/P (MAP) 197/77 (117) 152/90 Pulse Ox 98 Capillary Refill : Less Than 3 Seconds Blood Pressure Mean: 117 Progress Note : Progress Note Workup in the ER was grossly unremarkable. CT showed no evidence of injury. Lipase was minimally elevated. and patient were advised to treat this by observing a clear liquid diet until tomorrow. Patient will need to discuss whether or not to pursue further workup for her syncope and dizziness with Dr. Simpson. We discussed the impact this may have on her hospice enrollment. I also revisited CODE STATUS with the patient and . They would like to remain full code at this time. The hospice nurse was updated on findings and plan. ECG Initial ECG Impression Date: Jul 31, 2019 Initial ECG Impression Time: 14:05 Initial ECG Rate: 56 Initial ECG Rhythm: Normal Sinus Initial ECG Intervals: Normal Initial ECG Impression: Normal Comment Normal sinus rhythm with no ST elevation or depression. No abnormal intervals or axis deviation. Departure Impression Primary Impression: Right-sided abdominal pain of unknown cause Additional Impressions: Syncope Qualified Codes: R55 - Syncope and collapse Dizziness Disposition: 01 HOME, SELF-CARE Condition: Improved Departure-Patient Inst. Decision time for Depature: 16:24 Referrals: JESICA SIMPSON MD (PCP/Family) Primary Care Physician Patient Instructions: Acute Abdomen (Belly Pain) Add. Discharge Instructions: The exact cause of your abdominal pain is uncertain. Your pancreas enzymes were slightly elevated. To rest your pancreas, observe a clear liquid for the rest of today. Then gradually advance your diet with small quantities of bland food as tolerated starting tomorrow. If you choose to pursue working up the dizziness and follow-up with your vascular surgeon regarding the carotid artery stenosis, please discuss this with your primary care provider and your manager distribution center. You may need to drop hospice services to accomplish this goal. If you wish to evaluate the carotid arteries further, an outpatient ultrasound could be arranged by Dr. Simpson or your vascular surgeon. Return to care if you have worsening symptoms. Follow-up with Dr. Simpson as soon as possible. In the meantime, please use extreme caution when getting up or walking. All discharge instructions reviewed with patient and/or family. Voiced underst anding. Copy Copies To 1: JESICA SIMPSON MD, JOSHUA T MD Jul 31, 2019 16:29
[2019-07-31 16:55] VITALS: BP 152/90
== END 2019-07-31 16:55 | disposition home or self-care (01) ==
LOC: EDUNIT# 14:02 → ER 14:03
DX: R10.11 Right upper quadrant pain (principal); R55 Syncope and collapse; R42 Dizziness and giddiness; E11.9 Type 2 diabetes mellitus without complications; I25.10 Atherosclerotic heart disease of native coronary artery without angina pectoris; F03.90 Unspecified dementia, unspecified severity, without behavioral disturbance, psychotic disturbance, mood disturbance, and anxiety; K58.9 Irritable bowel syndrome, unspecified; Z90.89 Acquired absence of other organs; Z95.5 Presence of coronary angioplasty implant and graft; Z88.2 Allergy status to sulfonamides; Z79.82 Long term (current) use of aspirin; Z79.4 Long term (current) use of insulin; Z87.891 Personal history of nicotine dependence; Z90.710 Acquired absence of both cervix and uterus; Z82.49 Family history of ischemic heart disease and other diseases of the circulatory system
CPT/HCPCS: 36415; 71260; 74177; 80053; 81000; 83690; 84484; 85025; 93005; 93041